=== PATIENT | female | born 1960 | race Caucasian/White ===

== ENCOUNTER 2016-10-05 12:47 | Outpatient (CLI) | payer MEDICAID | END 2016-10-05 12:48 | disposition home or self-care (01) | DX: Z00.00 Encounter for general adult medical examination without abnormal findings (principal); I10 Essential (primary) hypertension ==

== ENCOUNTER 2016-10-22 11:35 | Day surgery (SDC) | payer MEDICAID ==
[2016-10-22] MEDS ORDERED: LACTATED RINGERS 1,000 ML IV ONE (11:41)
[2016-10-22] MEDS ORDERED: MIDAZOLAM 2 MG/2 ML VIAL IVP ONE (13:00)
[2016-10-22] MEDS ORDERED: fentaNYL 100 MCG/2 ML VIAL IVP ONE (13:00)
[2016-10-22] MEDS ORDERED: BENZOCAINE/TETRACAINE/BUTAMBEN SPRAY 56 GM TOP ONE (13:04)
== END 2016-10-22 11:36 | disposition home or self-care (01) ==
PROC: 0DB68ZX Excision of Stomach, Via Natural or Artificial Opening Endoscopic, Diagnostic (ICD-10-PCS; principal; 2016-10-22 12:45)
DX: K21.9 Gastro-esophageal reflux disease without esophagitis (principal); K22.10 Ulcer of esophagus without bleeding; K29.50 Unspecified chronic gastritis without bleeding; K31.7 Polyp of stomach and duodenum; D64.9 Anemia, unspecified; I10 Essential (primary) hypertension; I49.9 Cardiac arrhythmia, unspecified; G43.909 Migraine, unspecified, not intractable, without status migrainosus; E78.00 Pure hypercholesterolemia, unspecified; R01.1 Cardiac murmur, unspecified; R05 Cough; Z79.891 Long term (current) use of opiate analgesic; Z79.899 Other long term (current) drug therapy; Z87.891 Personal history of nicotine dependence; R06.83 Snoring; Z87.11 Personal history of peptic ulcer disease
CPT/HCPCS: 43239; A9270; J7120

== ENCOUNTER 2017-11-17 11:55 | Outpatient (CLI) | payer MEDICAID ==
--- NOTE | 2017-11-18 14:23 | Mammography Report ---
DIGITAL SCREENING MAMMOGRAM: 11/17/2017 CLINICAL INDICATION: A 57-year-old nulliparous patient with history of benign left breast biopsies for screening. COMPARISON: 09/2015, 12/2012, 03/2011. TECHNIQUE: Routine CC and MLO projections were obtained of the breasts. FINDINGS: The breasts again demonstrate heterogeneously dense fibroglandular parenchyma bilaterally. Coarse and punctate, typically benign calcifications are present. Postbiopsy changes in the left breast are stable. No suspicious masses, clustered microcalcifications, or regions of architectural distortion are identified. IMPRESSION: BENIGN FINDINGS. RECOMMENDATION: Routine annual screening unless otherwise clinically indicated. BIRADS CATEGORY 2 - benign findings. STANDARD QUALIFYING STATEMENTS: 1. This examination was reviewed with the aid of Computer-Aided Detection (CAD). 2. A negative or benign imaging report should not delay biopsy if clinically suspicious findings are present. Consider surgical consultation if warranted. More than 5% of cancers are not identified by imaging. 3. Dense breasts may obscure an underlying neoplasm. TD: 11/18/2017 14:23
== END 2017-11-17 11:56 | disposition home or self-care (01) ==
LOC: DI.N 11:55
PROVIDERS: ATTEND Family Medicine
DX: Z12.31 Encounter for screening mammogram for malignant neoplasm of breast (principal)
CPT/HCPCS: 77067

== ENCOUNTER 2017-12-09 09:51 | Day surgery (SDC) | payer MEDICAID ==
[2017-12-09] MEDS ORDERED: LACTATED RINGERS 1,000 ML IV ONE ×2 (09:57→11:19)
[2017-12-09] MEDS ORDERED: fentaNYL 250 MCG/5 ML VIAL IVP ONE (11:27)
[2017-12-09] MEDS ORDERED: MIDAZOLAM 2 MG/2 ML VIAL IVP ONE (11:27)
[2017-12-09 12:20] VITALS: BP 112/85
== END 2017-12-09 09:52 | disposition home or self-care (01) ==
LOC: SDS 09:51
PROVIDERS: ATTEND Surgery
PROC: 0DBK8ZX Excision of Ascending Colon, Via Natural or Artificial Opening Endoscopic, Diagnostic (ICD-10-PCS; principal; 2017-12-09 11:00)
DX: Z12.11 Encounter for screening for malignant neoplasm of colon (principal); D12.2 Benign neoplasm of ascending colon; K64.8 Other hemorrhoids; K57.30 Diverticulosis of large intestine without perforation or abscess without bleeding; I10 Essential (primary) hypertension; K21.9 Gastro-esophageal reflux disease without esophagitis; Z87.891 Personal history of nicotine dependence
CPT/HCPCS: 45380; J3010; J7120

== ENCOUNTER 2018-06-24 08:22 | Outpatient (CLI) | payer MEDICAID ==
--- NOTE | 2018-06-24 13:34 | DEXA Report ---
Reason: POSTMENOPAUSAL Procedure Date: 06/24/2018 Accession Number: [id number] / [id number] Procedure: DEX - Dexa Spine and/or Hip CPT Code: FULL RESULT: EXAM: Dexa Spine and/or Hip DATE: 06/24/2018 8:44 AM CLINICAL HISTORY: POSTMENOPAUSAL TECHNIQUE: Dual energy x-ray absorptiometry (DXA) was performed on a [employer] System. Regions measured are the AP Spine, femoral neck, and if needed forearm. COMPARISON: None. In accordance with the International Society for Clinical Densitometry (ISCD) guidelines, data from previous exams may be reanalyzed using current recommendations and techniques. This is done to allow a more accurate basis for comparison with the current study. FINDINGS: The data for the lumbar spine is as follows: BMD (g/cm/cm) T-SCORE Z-SCORE REGION L1 0.854 -2.3 -1.4 L2 1.014 -1.6 -0.6 L3 1.084 -1.0 0.0 L4 0.968 -1.9 -1.0 TOTAL 0.984 -1.6 -0.7 NOTE: All evaluable vertebrae are used for classification The data for the hip is as follows: BMD (g/cm/cm) T-SCORE Z-SCORE REGION Neck 0.796 -1.7 -0.7 TOTAL 0.872 -1.1 -0.3 NOTE: The femoral neck or total proximal femur, whichever is lowest, is used for classification. IMPRESSION: THE WHO CLASSIFICATION BASED ON THE INTERNATIONAL REFERENCE STANDARD IS OSTEOPENIA. THE FRACTURE RISK IS INCREASED. RECOMMENDATION: Patients with diagnosis of osteoporosis or osteopenia should have regular bone mineral density assessment. For those eligible for Medicare, routine testing is allowed once every 2 years. Testing frequency can be increased for patients who have rapidly progressing disease or for those who are receiving medical therapy to restore bone mass. COMMENT: World Health Organization (WHO) definitions for osteoporosis and osteopenia: NORMAL BMD: T-score at -1.0 or higher, fracture risk is low OSTEOPENIA BMD: T-score between -1.0 and -2.5, fracture risk is increased. OSTEOPOROSIS BMD: T-score at -2.5 or lower, fracture risk is high. National Osteoporosis Foundation recommends: 1. Obtain adequate dietary calcium (at least 1200 mg per day) and vitamin D (400-800 international units per day). 2. Participate, as appropriate, in regular weightbearing and muscle-strengthening exercise. 3. Avoid tobacco use and reduce alcohol and caffeine intake. 4. For more detailed information see the website at www.NOF.org.
== END 2018-06-24 08:23 | disposition home or self-care (01) ==
LOC: DI 08:22
PROVIDERS: ATTEND Family Medicine
DX: M85.89 Other specified disorders of bone density and structure, multiple sites (principal)
CPT/HCPCS: 77080

== ENCOUNTER 2018-11-30 09:07 | Outpatient (CLI) | payer MEDICAID ==
[~2018-11-30 09:07] MED LIST: ALBUTEROL NEB 2.5 MG/3 ML INH SCH
== END 2018-11-30 09:08 | disposition home or self-care (01) ==
LOC: RT 09:07
PROVIDERS: ATTEND Family Medicine
DX: R06.2 Wheezing (principal)
CPT/HCPCS: 94010; 94729

== ENCOUNTER 2018-12-02 10:11 | Outpatient (CLI) | payer MEDICAID ==
--- NOTE | 2018-12-02 10:53 | Mammography Report ---
Reason: SCREENING MAMMO Procedure Date: 12/02/2018 Accession Number: [id number] / [id number] Procedure: MGN - Screening Mammo Dig Bilat CPT Code: FULL RESULT: EXAM: Screening Mammo Dig Bilat DATE: 12/02/2018 10:30 AM CLINICAL HISTORY: Routine screening. No reported personal or family history of breast cancer. Prior history of benign left breast surgery. TECHNIQUE: Bilateral CC and MLO views were obtained. COMPARISON: 11/17/2017 through 12/14/2012 FINDINGS: The breasts demonstrate heterogeneously dense fibroglandular parenchyma bilaterally. Left breast: There is a 5 mm grouping of calcifications in the posterior upper outer breast at 2:00, 7 cm from the nipple. Right breast: There are no suspicious masses, calcifications or areas of distortion. IMPRESSION: Left breast: 5 mm grouping of calcifications posterior upper outer breast. Incomplete. BI-RADS Category 0. Additional mammographic imaging is recommended. Right breast: Negative. BI-RADS Category 1. Recommend annual screening mammography. BI-RADS CATEGORY 0: Incomplete examination STANDARD QUALIFYING STATEMENTS: 1. This examination was reviewed with the aid of Computer-Aided Detection (CAD). 2. A negative or benign imaging report should not preclude biopsy if clinically suspicious findings are present. 3. Dense breasts may obscure an underlying neoplasm. 4. This examination was reviewed without the aid of 3D breast imaging (tomosynthesis).
== END 2018-12-02 10:12 | disposition home or self-care (01) ==
LOC: DI.N 10:11
DX: Z12.31 Encounter for screening mammogram for malignant neoplasm of breast (principal)
CPT/HCPCS: 77067

== ENCOUNTER 2018-12-23 13:46 | Outpatient (CLI) | payer MEDICAID ==
--- NOTE | 2018-12-23 15:19 | Mammography Report ---
Reason: ABNORMAL MAMMOGRAM Procedure Date: 12/23/2018 Accession Number: [id number] / [id number] Procedure: ARIADNA - Diag Special Views Dig LT CPT Code: FULL RESULT: EXAM: Diag Special Views Dig LT DATE: 12/23/2018 3:03 PM CLINICAL HISTORY: Diagnostic examination. The patient is recalled from screening for a 5 mm grouping of calcifications in the posterior upper outer breast at 2:00, 7 cm from the nipple. TECHNIQUE: (L) - Left spot magnified CC, spot magnified ML and ML images are obtained. COMPARISON: 12/02/2018 through 12/14/2012. PARENCHYMAL PATTERN: (D) - The breast(s) demonstrate(s) heterogeneously dense fibroglandular parenchyma. FINDINGS: The previously identified 5 mm grouping of calcifications in the posterior upper outer breast at 2:00 is not definitely characterized as benign and demonstrates pleomorphic appearance with no associated mass or architectural distortion identified, suspicious. Stereotactic biopsy is recommended. IMPRESSION: Suspicious findings. BI-RADS category 4. RECOMMENDATION: (BIOPSY) - stereotactic. BI-RADS CATEGORY: (4) - Suspicious. STANDARD QUALIFYING STATEMENTS: 1. This examination was not reviewed with the aid of Computer-Aided Detection (CAD). 2. A negative or benign imaging report should not preclude biopsy if clinically suspicious findings are present. 3. Dense breasts may obscure an underlying neoplasm. 4. This examination was reviewed with the aid of 3D breast imaging (tomosynthesis). The nurse for Dr. Luke was notified of the results of the study.
== END 2018-12-23 13:47 | disposition home or self-care (01) ==
LOC: DI 13:46
PROVIDERS: ATTEND Family Medicine
DX: R92.1 Mammographic calcification found on diagnostic imaging of breast (principal)

== ENCOUNTER 2019-01-06 09:49 | Outpatient (CLI) | payer MEDICAID ==
[~2019-01-06 09:49] MED LIST changes: -ALBUTEROL NEB 2.5 MG/3 ML INH SCH; +BUFFERED LIDOCAINE 10 ML SYRINGE ONE; +BUPIVACAINE 0.5%-EPI 1:200000 PF 10 ML VIAL ONE
--- NOTE | 2019-01-06 14:26 | Mammography Report ---
Reason: ABNORMAL MAMMO Procedure Date: 01/06/2019 Accession Number: [id number] / [id number] Procedure: ARIADNA - Stereotactic Core BX LT CPT Code: 41530 FULL RESULT: EXAM: Stereotactic Core BX LT DATE: 01/06/2019 12:28 PM CLINICAL HISTORY: ABNORMAL MAMMO COMPARISON: 12/23/2018 through 12/14/2012. CLINICAL DATA: Target grouping of pleomorphic calcifications measuring 0.8 x 0.4 cm in the 2 o'clock axis of the left breast. Informed consent was obtained. The patient was positioned in the mammography machine with biopsy attachment. Targeting imaging was obtained and the lesion was selected. The breast was approached from the medial aspect. Using standard aseptic technique, 1% buffered lidocaine was injected into the breasts for local anesthesia. A small leola was made in the skin with a #11 blade. A 9-gauge vacuum-assisted device was advanced into the breasts towards the target and confirmatory imaging was obtained to verify targeting and 16 specimens were obtained. Specimen radiography was performed which demonstrated the presence of calcifications in the sample. At this point, the patient suffered a tonic clonic seizure changing position within the biopsy apparatus and dislodging the biopsy guide sheath. The sheath was manually repositioned into the best possible position urgently and the biopsy clip was delivered. Attention was immediately turned to the patient. The biopsy device was removed from the breast. Hemostasis was achieved. The patient recovered from the witnessed tonic-clonic seizure in under 1 minute. Vital signs were stable throughout. The patient did not recall the episode and could not recall a history of prior seizures. Based on this, the patient was referred to the emergency room. Prior to transfer, follow-up 3-D mammography was then performed to verify biopsy targeting and clip placement. The mammography showed that the previously targeted grouping of calcifications was no longer present. The biopsy clip was seen along the tract of the biopsy guide sheath more medially within the breast and not in the region of previously visualized calcifications which had been targeted. Careful review of mammographic images confirmed that the target grouping of calcifications was no longer present within the postbiopsy breast and the specimen radiograph demonstrated coarse and fine calcifications compatible with the targeted calcification group. Postbiopsy cavity soft tissue changes were difficult to discern. The patient appeared to tolerate the procedure well. The tissue was sent for histologic analysis. IMPRESSION: Adequate stereotactic biopsy of left upper outer breast grouping of calcifications complicated by tonic-clonic seizure resulting in suboptimal position of the biopsy clip. RADIA
== END 2019-01-06 09:50 | disposition home or self-care (01) ==
LOC: DI 09:49
PROVIDERS: ATTEND Family Medicine
DX: N60.12 Diffuse cystic mastopathy of left breast (principal)
CPT/HCPCS: 19081

== ENCOUNTER 2019-01-06 12:02 | Emergency (ER) | payer MEDICAID ==
--- NOTE | 2019-01-06 12:42 | ED Physician Documentation ---
PD HPI SYNCOPE - Stated complaint Stated Complaint: POSS SEIZURE - Chief complaint Chief Complaint: Neuro - History obtained from History obtained from: Patient - History of Present Illness Witnessed: Witnessed (She was having a breast biopsy done, she was sitting upright in the mammogram machine and started to feel like she was going to pass out and then did and reportedly was unconscious for about a minute with some shaking. She returned quickly to normal mental status without a significant postictal period. 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, Other - Present Medications Home Medications: Ambulatory Orders Medication Instructions Recorded Confirmed Atenolol [Tenormin] 50 mg PO DAILY 09/04/13 12/09/17 Calcium Carbonate [Calcium] 500 mg PO DAILY 09/04/13 12/09/17 Lisinopril/Hydrochlorothiazide 2 each PO DAILY 09/04/13 12/09/17 [Lisinopril-Hctz 10-12.5 mg Tab] Omeprazole [PriLOSEC] 20 mg PO DAILY 09/04/13 12/09/17 - Allergies Allergies/Adverse Reactions: Allergies Allergy/AdvReac Type Severity Reaction Status Date / Time Sulfa (Sulfonamide Allergy Unknown Unknown Unverified 09/04/13 10:03 Antibiotics) PD ED PE NORMAL - Vitals Vital signs reviewed: Yes - General General: Alert and oriented X 3, No acute distress - HEENT HEENT: PERRL, EOMI - Neck Neck: Supple, no meningeal sign, No bony TTP - Cardiac Cardiac: RRR, No murmur - Respiratory Respiratory: No respiratory distress, Clear bilaterally - Abdomen Abdomen: Soft, Non tender - Neuro Neuro: Alert and oriented X 3, Normal speech Eye Opening: Spontaneous Motor: Obeys Commands Verbal: Oriented GCS Score: 15 - Psych Psych: Normal mood, Normal affect Results - Vitals Vitals: Vital Signs - 24 hr 01/06/19 01/06/19 12:06 12:12 Temperature 36.8 C Heart Rate 56 L Respiratory 18 18 Rate Blood Pressure 114/72 O2 Saturation 100 Oxygen O2 Source Room air PD MEDICAL DECISION MAKING - ED course ED course: This episode was 100% consistent with vasovagal syncope with myoclonic jerking, not seizure activity. Departure - Departure Disposition: 01 Home, Self Care Clinical Impression: Myoclonic jerking Syncope Qualifiers: Syncope type: vasovagal syncope Qualified Code(s): R55 - Syncope and collapse Condition: Good Record reviewed to determine appropriate education?: Yes Instructions: ED Syncope Vasovagal Comments: As discussed the episode is not consistent with seizure. Make sure you are laying flat for further medical procedures.
[2019-01-06 12:47] VITALS: BP 104/72
== END 2019-01-06 12:46 | disposition home or self-care (01) ==
LOC: ED 12:02
DX: R55 Syncope and collapse (principal); G25.3 Myoclonus; I10 Essential (primary) hypertension; R92.8 Other abnormal and inconclusive findings on diagnostic imaging of breast; N60.12 Diffuse cystic mastopathy of left breast
CPT/HCPCS: 19081; 99283

== ENCOUNTER 2019-03-06 11:54 | Outpatient (CLI) | payer MEDICAID ==
--- NOTE | 2019-03-06 16:14 | Ultrasound Report ---
Reason: ACUTE RENAL FAILURE Procedure Date: 03/06/2019 Accession Number: [id number] / [id number] Procedure: US - Retroperitoneal CPT Code: FULL RESULT: EXAM: RENAL ULTRASOUND EXAM DATE: 03/06/2019 12:48 PM. CLINICAL HISTORY: ACUTE RENAL FAILURE. COMPARISON: None. TECHNIQUE: Real-time scanning was performed with static images obtained. FINDINGS: Right Kidney: 9.2 cm in maximal sagittal dimension. Normal echotexture with no stones, contour-deforming masses, or hydronephrosis. Left Kidney: 9.5 cm in maximal sagittal dimension. Normal echotexture with no stones, contour-deforming masses, or hydronephrosis. Bladder: Bilateral jets seen. The prevoid bladder volume was 91 cc. The postvoid bladder volume was 16 cc. Other: None. IMPRESSION: Normal renal ultrasound. RADIA
== END 2019-03-06 11:55 | disposition home or self-care (01) ==
LOC: DI 11:54
PROVIDERS: ATTEND Family Medicine
DX: N17.9 Acute kidney failure, unspecified (principal)
CPT/HCPCS: 76770

== ENCOUNTER 2019-03-13 10:47 | Outpatient (CLI) | payer MEDICAID ==
--- NOTE | 2019-03-13 13:54 | XRAY Report ---
Reason: COUGH WITH FEVER Procedure Date: 03/13/2019 Accession Number: [id number] / [id number] Procedure: WCP - Chest 2 View X-Ray CPT Code: 44835 FULL RESULT: EXAM: CHEST RADIOGRAPHY EXAM DATE: 03/13/2019 11:02 AM. CLINICAL HISTORY: COUGH WITH FEVER. COMPARISON: None. TECHNIQUE: 2 views. FINDINGS: Lungs/Pleura: Left lower lobe infiltrate. No pleural effusion. No pneumothorax. Normal volumes. Mediastinum: Heart and mediastinal contours are unremarkable. Other: None. IMPRESSION: Left lower lobe infiltrate. RADIA
== END 2019-03-13 10:48 | disposition home or self-care (01) ==
LOC: DI.WCP 10:47
PROVIDERS: ATTEND Family Medicine
DX: R91.8 Other nonspecific abnormal finding of lung field (principal)
CPT/HCPCS: 71046

== ENCOUNTER 2019-08-07 08:54 | Outpatient (CLI) | payer MEDICAID ==
--- NOTE | 2019-08-07 10:20 | Mammography Report ---
Reason: ABN MAMMO - 6 MO F/U Procedure Date: 08/07/2019 Accession Number: [id number] / [id number] Procedure: ARIADNA - Diagnostic Dig LT CPT Code: Final Report FULL RESULT: EXAM: Diagnostic Dig LT DATE: 08/07/2019 9:49 AM CLINICAL HISTORY: Diagnostic mammogram, six month follow-up post left breast stereotactic core biopsy (01/06/2019); benign pathology. TECHNIQUE: (B) - Bilateral CC and MLO views were obtained. COMPARISON: 12/23/2018 (left breast diagnostic) PARENCHYMAL PATTERN: The breast tissue is heterogeneously dense which limits mammographic sensitivity. FINDINGS: The pattern of nodular asymmetry is stable given positional variation. A microclip is in place in the posterior upper outer 2:00 position, site of benign biopsy. There are no developing suspicious masses, calcifications, or areas of distortion. IMPRESSION: Benign examination. BI-RADS Category 2 RECOMMENDATION: Resume routine screening mammography. The next bilateral mammogram is recommended November 2019. BI-RADS Category 2 - Benign STANDARD QUALIFYING STATEMENTS: 1. A negative or benign imaging report should not preclude biopsy if clinically suspicious findings are present. 3. Dense breasts may obscure an underlying neoplasm. 4. This examination was reviewed with the aid of 3D breast imaging (tomosynthesis).
== END 2019-08-07 08:55 | disposition home or self-care (01) ==
LOC: DI 08:54
PROVIDERS: ATTEND Family Medicine
DX: Z09 Encounter for follow-up examination after completed treatment for conditions other than malignant neoplasm (principal); Z86.018 Personal history of other benign neoplasm

== ENCOUNTER 2020-03-19 13:43 | Outpatient (CLI) | payer MEDICAID ==
[2020-03-19 18:14] LABS: BASOPHILS # (AUTO) 0.1 10^3/uL (0.0-0.1); BASOPHILS % (AUTO) 0.8 %; EOSINOPHILS % (AUTO) 0.7 %; HGB - HEMOGLOBIN 15.5 g/dL (12.0-16.0); LYMPHOCYTES # (AUTO) 3.1 10^3/uL (1.5-3.5); MEAN CORPUSCULAR HEMOGLOBIN 34.5 pg (27.0-31.0); MEAN CORPUSCULAR HGB CONC 33.8 g/dL (32.0-36.0); MEAN CORPUSCULAR VOLUME 102.2 fL (81.0-99.0); MEAN PLATELET VOLUME 11.3 fL (7.9-10.8); MONOCYTES # (AUTO) 0.6 10^3/uL (0.0-1.0); MONOCYTES % (AUTO) 9.3 %; NEUTROPHILS # (AUTO) 2.2 10^3/uL (1.5-6.6); PLT - PLATELET COUNT 109 10^3/uL (130-450); RED BLOOD COUNT 4.49 10^6/uL (4.20-5.40); RED CELL DISTRIBUTION WIDTH 13.8 % (12.0-15.0); WHITE BLOOD COUNT 5.9 x10^3/uL (4.8-10.8)
[2020-03-19 18:53] LABS: FERRITIN 344.2 ng/mL (11.0-306.8)
[2020-03-19 18:57] LABS: ALBUMIN 4.2 g/dL (3.2-5.5); BILIRUBIN,TOTAL 0.8 mg/dL (0.2-1.0); CALCIUM 9.1 mg/dL (8.5-10.3); TOTAL PROTEIN 8.3 g/dL (6.7-8.2)
== END 2020-03-19 23:59 | disposition home or self-care (01) ==
LOC: LAB.WCP 13:43
PROVIDERS: ATTEND Family Medicine
DX: N28.9 Disorder of kidney and ureter, unspecified (principal); F10.10 Alcohol abuse, uncomplicated; R79.0 Abnormal level of blood mineral
CPT/HCPCS: 36415; 80053; 82607; 82728; 83540; 84466; 85025

== ENCOUNTER 2020-05-17 11:50 | Outpatient (CLI) | payer MEDICAID, OTHER ==
[2020-05-17 18:20] LABS: BASOPHILS # (AUTO) 0.1 10^3/uL (0.0-0.1); BASOPHILS % (AUTO) 0.8 %; EOSINOPHILS % (AUTO) 0.6 %; HGB - HEMOGLOBIN 14.9 g/dL (12.0-16.0); LYMPHOCYTES # (AUTO) 2.2 10^3/uL (1.5-3.5); LYMPHOCYTES % (AUTO) 33.6 %; MEAN CORPUSCULAR HEMOGLOBIN 35.6 pg (27.0-31.0); MEAN CORPUSCULAR HGB CONC 34.2 g/dL (32.0-36.0); MEAN CORPUSCULAR VOLUME 104.3 fL (81.0-99.0); MEAN PLATELET VOLUME 11.4 fL (7.9-10.8); MONOCYTES # (AUTO) 0.6 10^3/uL (0.0-1.0); MONOCYTES % (AUTO) 8.5 %; NEUTROPHILS # (AUTO) 3.7 10^3/uL (1.5-6.6); NEUTROPHILS % (AUTO) 56.2 %; PLT - PLATELET COUNT 135 10^3/uL (130-450); RED BLOOD COUNT 4.18 10^6/uL (4.20-5.40); RED CELL DISTRIBUTION WIDTH 13.9 % (12.0-15.0); WHITE BLOOD COUNT 6.6 x10^3/uL (4.8-10.8)
[2020-05-17 18:57] LABS: ALBUMIN 4.2 g/dL (3.2-5.5); BILIRUBIN,TOTAL 1.1 mg/dL (0.2-1.0); CALCIUM 9.8 mg/dL (8.5-10.3); CREATININE 0.8 mg/dL (0.4-1.0); TOTAL PROTEIN 8.3 g/dL (6.7-8.2)
[2020-05-18 12:06] LABS: HEPATITIS C ANTIBODY NON-REACTIVE (NON-REACTIVE)
[2020-05-18 12:21] LABS: HEPATITIS B SURFACE ANTIGEN NON-REACTIVE (NON-REACTIVE)
== END 2020-05-17 11:51 | disposition home or self-care (01) ==
LOC: LAB.WCP 11:50
PROVIDERS: ATTEND Family Medicine
DX: D64.9 Anemia, unspecified (principal); R94.5 Abnormal results of liver function studies
CPT/HCPCS: 36415; 80053; 82728; 85025; 86317; 86704; 86803; 87340

== ENCOUNTER 2020-10-16 | Outpatient (CLI) | payer OTHER | END 2020-10-16 10:08 | disposition critical access hospital (66) | DX: R47.81 Slurred speech (principal) | CPT/HCPCS: A0425; A0427 ==

== ENCOUNTER 2020-10-16 10:21 | Observation (INO) | payer OTHER ==
[2020-10-16] MEDS ORDERED: SODIUM CHLORIDE 0.9% 1,000 ML IV STA (10:27)
--- NOTE | 2020-10-16 10:29 | ED Physician Documentation ---
PD HPI ALTERED MENTAL STATUS - Stated complaint Stated Complaint: CODE STROKE - History obtained from History obtained from: Patient, Family (report from ), EMS - History of Present Illness Timing - onset: Today (about 9 am) Timing - details: Abrupt onset (The medics conveyed from the and patient and I also talked with the : The patient had abrupt unintelligible speech associated with ataxia and off balance that came on abruptly. No focal weakness. Lasted about 5-10 minutes and was improving on EMS arrival. They noted some garbled.) Quality / character: Other (garbled speech and ataxia abruptly.) Associated symptoms: No: Fever, Headache Contributing factors: Other (initially did not offer that she had alcohol use.). No: Diabetic Basline status: Alert and oriented X 3 Similar symptoms before: Has not had sx before Recently seen: Not recently seen Review of Systems Constitutional: denies: Fever, Chills Eyes: denies: Loss of vision Nose: denies: Rhinorrhea / runny nose, Congestion Throat: denies: Sore throat Cardiac: denies: Chest pain / pressure, Palpitations Respiratory: denies: Dyspnea, Cough GI: denies: Abdominal Pain, Vomiting : denies: Dysuria Skin: denies: Rash Musculoskeletal: denies: Neck pain, Back pain Neurologic: reports: Difficulty speaking, Altered mental status. 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: Tubal ligation, Other - Present Medications Home Medications: Ambulatory Orders Medication Instructions Recorded Confirmed Calcium Carbonate [Calcium] 500 mg PO DAILY 09/04/13 12/09/17 Lisinopril/Hydrochlorothiazide 2 each PO DAILY 09/04/13 12/09/17 [Lisinopril-Hctz 10-12.5 mg Tab] Omeprazole [PriLOSEC] 20 mg PO DAILY 09/04/13 12/09/17 atenoloL [Tenormin] 50 mg PO DAILY 09/04/13 12/09/17 Amlodipine Besylate [Norvasc] 10/16/20 - Allergies Allergies/Adverse Reactions: Allergies Allergy/AdvReac Type Severity Reaction Status Date / Time Sulfa (Sulfonamide Allergy Unknown Unknown Verified 10/16/20 13:29 Antibiotics) PD ED PE NORMAL - Vitals Vital signs reviewed: Yes - General General: Alert and oriented X 3, No acute distress, Well developed/nourished - HEENT HEENT: PERRL, EOMI, Moist mucous membranes, Pharynx benign - Neck Neck: Supple, no meningeal sign, No adenopathy - Cardiac Cardiac: RRR, No murmur - Respiratory Respiratory: Clear bilaterally - Abdomen Abdomen: Soft, Non tender - Back Back: No CVA TTP - Derm Derm: Normal color, Warm and dry - Extremities Extremities: No tenderness to palpate, Normal ROM s pain, No edema, No calf tenderness / cord - Neuro Neuro: Alert and oriented X 3, No motor deficit, No sensory deficit, Normal s peech - Psych Psych: No: Normal affect (giddy and laughing exuberantly at times. ) NIHSS - Level of Consciousness Level of consciousness: (0) Alert, Keenly responsive LOC Questions: (0) Answers both Q's correct LOC Commands: (0) Performs both correctly - Gaze Best Gaze: (0) Normal - Visual Visual: (0) No loss - Facial Palsy Facial Palsy: (0) Normal, symmetrical movement - Motor Arms (both separate) Motor Arm (right): (0) No drift Motor Arm (left): (0) No drift - Motor Legs (both separate) Motor Leg (right): (0) No drift Motor Leg (left): (0) No drift - Limb Ataxia Limb Ataxia: (0) Absent - Sensory Sensory: (0) Normal - Best Language Best Language: (0) No aphasia - Dysarthria Dysarthria: (0) Normal - Extinction and Inattention (formally neg Extinction and inattention: (0) No abnormality - Total Score/Results Total Score/Result: 0 Results - Vitals Vitals: Vital Signs - 24 hr 10/16/20 10/16/20 10/16/20 10:25 10:54 11:03 Temperature 36.2 C L Heart Rate 87 91 89 Respiratory 16 16 18 Rate Blood Pressure 133/80 H 129/79 93/67 O2 Saturation 100 100 95 10/16/20 10/16/20 10/16/20 11:19 11:46 12:09 Temperature 36.4 C L Heart Rate 88 86 84 Respiratory 21 20 18 Rate Blood Pressure 139/102 H 128/91 H 130/77 O2 Saturation 100 93 96 Oxygen O2 Source Room air - EKG (time done) 10:43 Rate: Rate (enter#) (90) Rhythm: NSR Rosamond: Normal Intervals: Normal AL QRS: Normal Ischemia: No: Normal ST segments, ST elevation c/w repol - Labs Labs: Laboratory Tests 10/16/20 10/16/20 10/16/20 10:28 10:38 10:50 WBC 6.2 RBC 4.25 Hgb 14.5 Hct 41.7 MCV 98.1 MCH 34.1 H MCHC 34.8 RDW 12.9 Plt Count 122 L MPV 10.3 Neut # (Auto) 1.9 Lymph # (Auto) 3.4 Duval # (Auto) 0.6 Eos # (Auto) 0.2 Baso # (Auto) 0.0 Absolute Nucleated RBC 0.00 Nucleated RBC % 0.0 ESR 24 Sodium Potassium Chloride Carbon Dioxide Anion Gap BUN Creatinine Estimated GFR (MDRD) Glucose Calcium Magnesium Total Bilirubin AST ALT Alkaline Phosphatase Total Protein Albumin Globulin Albumin/Globulin Ratio Ethyl Alcohol 345.3 10/16/20 10:50 WBC RBC Hgb Hct MCV MCH MCHC RDW Plt Count MPV Neut # (Auto) Lymph # (Auto) Duval # (Auto) Eos # (Auto) Baso # (Auto) Absolute Nucleated RBC Nucleated RBC % ESR Sodium 142 Potassium 3.4 L Chloride 102 Carbon Dioxide 21 Anion Gap 19.0 H BUN 11 Creatinine 1.1 H Estimated GFR (MDRD) 50 L Glucose 139 H Calcium 9.3 Magnesium 1.7 Total Bilirubin 0.4 AST 78 H ALT 53 Alkaline Phosphatase 130 H Total Protein 7.9 Albumin 4.3 Globulin 3.6 Albumin/Globulin Ratio 1.2 Ethyl Alcohol - Rads (name of study) CT head Radiology: Prelim report reviewed (no ICH nor acute findings), Discussed with rads, See rad report head and neck angio Radiology: Prelim report reviewed, Discussed with rads (no vascular occlusions nor significant stenoses. ), See rad report PD MEDICAL DECISION MAKING - ED course Complexity details: reviewed results, re-evaluated patient (still emotive and somewhat giddy/ exagerated emotional response. This seems likely metabolic/ intoxicated. Cannot exclude TIA symptoms initially. ), considered differential (consider TIA/CVA, complex migraine, ICH, other concern. No focal deficits here on arrival. She is giddy/emotional though. ), d/w patient, d/w senior [employer] consultant (Talked with [facility] who felt no interventions needed (TPA/intravascular). To eval for TIA. ) Departure - Departure Disposition: ED Place in Observation Clinical Impression: TIA (transient ischemic attack) Alcohol intoxication Qualifiers: Complication of substance-induced condition: uncomplicated Qualified Code(s): F10.920 - Alcohol use, unspecified with intoxication, uncomplicated Condition: Stable Record reviewed to determine appropriate education?: Yes Discharge Date/Time: 10/16/20 13:47
--- NOTE | 2020-10-16 10:51 | CT Report ---
PROCEDURE: Head W/O Stroke Protocol INDICATIONS: confused and ataxia onset 9 am TECHNIQUE: Noncontrast 4.5 mm thick angled axial sections acquired from the foramen magnum to the vertex. For r adiation dose reduction, the following was used: automated exposure control, adjustment of mA and/or kV according to patient size. COMPARISON: None FINDINGS: Image quality: Excellent. CSF spaces: Basal cisterns are patent. No extra-axial fluid collections. The ventricles are symmet annalise in size and shape. Brain: No intracranial bleeds or masses. There is cerebral volume loss for age, with resultant vent ricular and sulcal prominence. There are periventricular and deep white matter chronic small vessel ischemic changes. There is intracranial internal carotid artery atherosclerosis. Skull and face: Calvarium and visualized facial bones appear intact, without suspicious lesions. Sinuses: Visualized sinuses and mastoids are clear. IMPRESSION: No acute intracranial disease process. Findings telephoned to Dr. Frankel on 10/16/2020 at 1050 hrs. This study fulfills neurological imaging criteria for inclusion or exclusion of acute stroke therapie s based on available published neurological imaging guidelines. Reviewed by: Enriqueta Singh MD, PhD on 10/16/2020 10:50 AM PST Approved by: Enriqueta Singh MD, PhD on 10/16/2020 10:50 AM PST Station ID: [id number]
[2020-10-16 10:58] LABS: BASOPHILS % (AUTO) 0.5 %; EOSINOPHILS # (AUTO) 0.2 10^3/uL (0.0-0.7); EOSINOPHILS % (AUTO) 2.7 %; HGB - HEMOGLOBIN 14.5 g/dL (12.0-16.0); LYMPHOCYTES # (AUTO) 3.4 10^3/uL (1.5-3.5); LYMPHOCYTES % (AUTO) 55.4 %; MEAN CORPUSCULAR HEMOGLOBIN 34.1 pg (27.0-31.0); MEAN CORPUSCULAR HGB CONC 34.8 g/dL (32.0-36.0); MEAN CORPUSCULAR VOLUME 98.1 fL (81.0-99.0); MEAN PLATELET VOLUME 10.3 fL (7.9-10.8); MONOCYTES # (AUTO) 0.6 10^3/uL (0.0-1.0); MONOCYTES % (AUTO) 9.8 %; NEUTROPHILS # (AUTO) 1.9 10^3/uL (1.5-6.6); NEUTROPHILS % (AUTO) 31.3 %; PLT - PLATELET COUNT 122 10^3/uL (130-450); RED BLOOD COUNT 4.25 10^6/uL (4.20-5.40); RED CELL DISTRIBUTION WIDTH 12.9 % (12.0-15.0); WHITE BLOOD COUNT 6.2 x10^3/uL (4.8-10.8)
--- NOTE | 2020-10-16 10:58 | CT Report ---
PROCEDURE: ANGIO NECK W INDICATIONS: confused and ataxia onset 9 am CONTRAST: IV CONTRAST: Optiray 320 ml: 80 PO CONTRAST: *NO PO CONTRAST TECHNIQUE: After the administration of intravenous contrast, 1.5 mm axial sections acquired from the aortic arch to the [place] of [place]. Coronal 3-D maximum intensity projection (MIP) and/or volume rendering ref ormats were then performed. For radiation dose reduction, the following was used: automated exposur e control, adjustment of mA and/or kV according to patient size. COMPARISON: CTA Head on the same date, CT head from the same date FINDINGS: Image quality: Excellent. 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 Great vessel origins are widely patent. There is marked t ortuosity of the proximal great vessels. The origins of the common carotid arteries appear patent. T he common carotid arteries demonstrate normal calibers and courses. The bifurcation regions appear n ormal bilaterally. The internal carotid arteries demonstrate normal caliber and course. Posterior circulation: The origins of the vertebral arteries appear patent. The more superior porti ons of the vertebral arteries demonstrate normal course and caliber. The left vertebral artery is dom inant. The right vertebral artery is mildly diminutive. They join to form a normal appearing basilar artery. Soft tissues: Visualized neck soft tissues demonstrate no suspicious abnormalities. The thyroid gla nd is normal in size. Bones: No suspicious bony lesions. Visualized cervical spine appears normally aligned. IMPRESSION: 1. 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 2. Great vessel origins are widely patent. There is significant tortuosity. Internal carotid arteries are widely patent. 3. Otherwise unremarkable CTA neck. Above discussed with Gibson Frankel MD at the time of dictation on 10/16/2020 at 1056 hours. The estimate of stenosis included in the report of the imaging study was calculated using the NASCET method Reviewed by: Onel Cameron MD on 10/16/2020 10:56 AM PST Approved by: Onel Cameron MD on 10/16/2020 10:56 AM PST Station ID: [id number]
--- NOTE | 2020-10-16 11:01 | CT Report ---
PROCEDURE: ANGIO HEAD W/WO INDICATIONS: confused and ataxia onset 9 am CONTRAST: IV CONTRAST: Optiray 320 ml: 80 PO CONTRAST: *NO PO CONTRAST TECHNIQUE: Precontrast 4.5 mm thick angled axial sections acquired from the foramen magnum to the vertex. Afte r the administration of intravenous contrast, 1 mm thick sections acquired through the [place] of [place] is. Postcontrast 4.5 mm thick sections then re-acquired from the foramen magnum to the vertex. 3-di mensional svwxobc-nlnnratgc-toifxzbfrc (MIP) and/or volume rendering reformats were acquired of the c entral intracranial vasculature. For radiation dose reduction, the following was used: automated ex posure control, adjustment of mA and/or kV according to patient size. COMPARISON: CT head from the same date, CT Angio Head and Neck with contrast from the same date FINDINGS: Image quality: Excellent. Anterior circulation: Intracranial internal carotid arteries are normal in size and flow. The flow within the paired anterior cerebral arteries is normal and symmetric. The flow within the middle cer ebral arteries is normal and symmetric. The anterior communicating artery is seen. No aneurysms are seen. Posterior circulation: Visualized portions of the vertebral arteries demonstrate normal caliber, and join to form a normal appearing basilar artery. Flow within the posterior cerebral arteries is norm al and symmetric. No aneurysms are seen. CSF spaces: Ventricles are normal in size and shape. Basal cisterns are patent. No extra-axial flu id collections. Brain: No midline shift. No intracranial bleeds or masses. Edwards-white matter interface appears int act. Skull and face: Calvarium and facial bones appear intact, without suspicious lesions. Sinuses: Visualized sinuses and mastoids are clear. IMPRESSION: 1. No evidence acute stroke, hemorrhage, or mass. 2. Unremarkable CTA head. No evidence of stenosis, occlusion, focal filling defect, or aneurysm. Above discussed with MARCIO NUR at the time of dictation on 10/16/2020 at 1056 hours. Reviewed by: Onel Cameron MD on 10/16/2020 11:00 AM PST Approved by: Onel Cameron MD on 10/16/2020 11:00 AM PST Station ID: [id number]
[2020-10-16] MEDS ORDERED: IOVERSOL 320 100 ML VIAL IVP ONE (11:14)
[2020-10-16 11:16] LABS: ALBUMIN 4.3 g/dL (3.2-5.5); ALBUMIN/GLOBULIN RATIO 1.2 (1.0-2.2); BILIRUBIN,TOTAL 0.4 mg/dL (0.2-1.0); CALCIUM 9.3 mg/dL (8.5-10.3); CREATININE 1.1 mg/dL (0.4-1.0); MAGNESIUM 1.7 mg/dL (1.7-2.8); TOTAL PROTEIN 7.9 g/dL (6.7-8.2)
[2020-10-16] MEDS ORDERED: ACETAMINOPHEN 325 MG TABLET PO PRN (12:12)
[2020-10-16] MEDS ORDERED: oxyCODONE 5 MG TABLET PO PRN (12:12)
[2020-10-16] MEDS ORDERED: SODIUM CHLORIDE FLUSH 0.9% 10 ML SYRINGE IVP PRN (12:12)
[2020-10-16] MEDS ORDERED: ONDANSETRON ODT 4 MG TABLET TL PRN (12:12)
[2020-10-16] MEDS ORDERED: ONDANSETRON 4 MG/2 ML VIAL IVP PRN (12:12)
[2020-10-16] MEDS ORDERED: SODIUM CHLORIDE 0.9% 1,000 ML IV SCH (13:00)
[2020-10-16 13:13] LABS: MUDS CUTOFF CONCENTRATIONS CUTOFF CONC BELOW:
[2020-10-16 13:15] LABS: BILIRUBIN,URINE NEGATIVE (NEGATIVE); GLUCOSE, URINE (UA) NEGATIVE (NEGATIVE); KETONES,URINE (UA) NEGATIVE (NEGATIVE); LEUKOCYTE ESTERASE, URINE NEGATIVE (NEGATIVE); NITRITE,URINE NEGATIVE (NEGATIVE); OCCULT BLOOD,URINE NEGATIVE (NEGATIVE); PROTEIN,URINE NEGATIVE (NEGATIVE); UROBILINOGEN,URINE 0.2 (NORMAL) E.U./dL (NORMAL)
[2020-10-16 13:20] LABS: CLARITY,URINE CLEAR (CLEAR)
[2020-10-16 13:24] LABS: AMPHETAMINE SCREEN,URINE NEGATIVE (NEGATIVE); BENZODIAZEPINES SCREEN, URINE NEGATIVE (NEGATIVE); COCAINE SCREEN URINE NEGATIVE (NEGATIVE); METHADONE SCREEN, URINE NEGATIVE (NEGATIVE); METHAMPHETAMINES SCREEN, URINE NEGATIVE (NEGATIVE); OPIATE SCREEN, URINE NEGATIVE (NEGATIVE); OXYCODONE SCREEN, URINE NEGATIVE (NEGATIVE); PROPOXYPHENE SCREEN, URINE NEGATIVE (NEGATIVE); TRICYCLIC ANTIDEPRESSANT,URINE NEGATIVE (NEGATIVE)
[2020-10-16] MEDS: THIAMINE INJ 100 MG, FOLIC ACID INJ 1 MG in SODIUM CHLORIDE 0.9% 1,000 ML IV SCH (14:27)
[2020-10-16 15:07] LABS: C. PNEUMONIAE- RESP PCR PANEL NOT DETECTED
--- NOTE | 2020-10-16 15:26 | HISTORY & PHYSICAL EXAMINATION ---
Chief Complaint - Chief Complaint Chief Complaint: altered mental status History of Present Illness - Admitted From Admitted From:: Pt and spouse - History Obtained From Records Reviewed: [facility] History obtained from: pt, spouse, chart - History of Present Illness HPI Comment/Other: 60 year old female with hx of alcohol abuse and seizures admitted from the ER today for altered mental status and concern for stroke. History obtained from Pt, her , and chart review. Pt's reports that this morning Pt was confused, slurring her words, and stumbling around the house. She was weaker than normal. He helped her into the car and she reports she stumbled against it, possibly hitting her foot, and was "seeing red and black spots". They presented to the clinic for a check up and were instructed to come to the ER for stroke work up. She does not remember leaving the house and presenting to the clinic. Since presenting to the ED her altered mental status has cleared. She is tremulous and excitable, slightly labile. She has a long history of alcohol abuse, with unclear history of withdrawals though this is likely given past hx of seizures and report of previous agitation and confusion after periods of not drinking. Her last drink was yesterday but she cannot remember how much she drank and her was sleeping and not aware she was drinking. On work up in the ED, ethyl alcohol was 345.3. Head CT, head CTA, and neck CTA were all unremarkable and negative for stroke. Her speech is clear, affect is labile (ranging from flat to happy), and her emotions have been labile since admission to the med-surg unit. Her gait is unsteady and she is tremulous. She is alert and oriented x4. She denies pain, n/v, fevers, chills or fatigue. Remaining ROS negative. She was admitted for work up of TIA vs stroke vs alcohol withdrawal. History - Past Medical History Cardiovascular: reports: Hypertension, High cholesterol, Angina (stress test for ischemia; able to exercise to 10.1 meq), Atrial flutter, Murmur, Arrhythmia, Other (palpitations) Respiratory: reports: None, Asthma (Reports hx asthma, uses inhaler infrequently with exercise), Pneumonia Neuro: reports: Migraines, Peripheral neuropathy, Seizure disorder GI: reports: GERD, Chronic diarrhea, Other : reports: None HEENT: reports: Chronic sinusitis, Other Psych: reports: Depression, Anxiety Musculoskeletal: reports: Osteoarthritis, Fatigue Derm: reports: None MRSA Hx?: No - Past Surgical History General: reports: 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 Lives at home with , they have been together almost 50 years. - Substance History Dependence: Experiences withdrawal or developed tolerances: Alcohol (Pint every 3 days, reports recently cutting back. Identified with elevated liver enzymes and ferritin level in 2019; referred to telepsychiatry service. Continue to drink 4 drinks of alcohol at night, vodka. Occasional tremors if she did not drink. No kaveh withdrawal, previously declined AA. ) Dependence Issues: Intoxication Tobacco Details: Other (smoked 1/4 PPD x12 years, quit 1980) - POLST Patient has POLST: No Meds/Allgy - Home Medications Home Medications: Ambulatory Orders Medication Instructions Recorded Confirmed Calcium Carbonate [Calcium] 500 mg PO DAILY 09/04/13 12/09/17 Lisinopril/Hydrochlorothiazide 2 each PO DAILY 09/04/13 12/09/17 [Lisinopril-Hctz 10-12.5 mg Tab] Omeprazole [PriLOSEC] 20 mg PO DAILY 09/04/13 12/09/17 atenoloL [Tenormin] 50 mg PO DAILY 09/04/13 12/09/17 Amlodipine Besylate [Norvasc] 10/16/20 - Allergies Allergies/Adverse Reactions: Allergies Allergy/AdvReac Type Severity Reaction Status Date / Time Sulfa (Sulfonamide Allergy Unknown Unknown Verified 10/16/20 13:29 Antibiotics) Review of Systems - Constitutional Constitutional: reports: Weakness. denies: Fever, Chills - Eyes Eyes: reports: Spots in vision (when experiencing AMS, this has resolved). denies: Pain - Ears, Nose & Throat Ears, Nose & Throat: denies: Ear pain, Hearing loss, Sore throat - Cardiovascular Cariovascular: denies: Irregular heart rate, Palpitations, Chest pain, Edema, Lightheadedness, Syncope - Respiratory Respiratory: denies: Cough, SOB at rest, SOB with exertion - Gastrointestinal Gastrointestinal: denies: Abdominal pain, Constipation, Diarrhea - Genitourinary Genitourinary: denies: Dysuria, Incontinence - Musculoskeletal Musculoskeletal: denies: Muscle pain - Integumentary Integumentary: reports: Other (bruising on left dorsal foot and left posterior hand) - Neurological Neurological: reports: Other (tremor). denies: General weakness, Headache, Dizziness, Numbness, Seizures, Slurred speech (presenting problems of slurred speech, AMS and general weakness have resolved) - Psychiatric Psychiatric: denies: Depression - Endocrine Endocrine: denies: Polyuria, Polydypsia, Polyphagia - Hematologic/Lymphatic Hematologic/Lymphatic: reports: Bruising (left hand and left foot) - All Other Systems All Other Systems: reports: Reviewed and negative Prior Level of Functionality: independent with ADLs at home Exam - Vital Signs Reviewed Vital Signs: Yes Vital Signs: Vital Signs x48h Temp Pulse Resp BP Pulse Ox 10/16/20 12:51 78 20 102/79 99 10/16/20 12:09 36.4 C L 84 18 130/77 96 10/16/20 11:46 86 20 128/91 H 93 10/16/20 11:19 88 21 139/102 H 100 10/16/20 11:03 89 18 93/67 95 10/16/20 10:54 91 16 129/79 100 10/16/20 10:25 36.2 C L 87 16 133/80 H 100 - Physical Exam General Appearance: positive: Mild distress, Anxious Eyes Bilateral: positive: Normal inspection, PERRL, EOMI, No scleral icterus ENT: positive: ENT inspection nml Neck: positive: Nml inspection Respiratory: positive: Chest non-tender, No respiratory distress, Breath sounds nml Cardiovascular: positive: Regular rate & rhythm, No murmur, No gallop Peripheral Pulses: positive: 2+ Abdomen: positive: Non-tender, No organomegaly, Nml bowel sounds, No distention Skin: positive: Pallor Extremities: positive: Non-tender, Full ROM, Nml appearance, Pedal edema Neurologic/Psychiatric: positive: Oriented x3, CN's nml (2-12). negative: Motor nml (tremors), Mood/affect nml (excitable and emotionally labile), Weakness, Facial droop, Slurred/abnml speech Sepsis Event Note (H) - Evaluation Current Stage of Sepsis: Ruled out Conclusion/Plan - Problem List (1) TIA (transient ischemic attack) Conclusion/Plan: Initial presentation concerning for TIA, given report of slurred speech, unsteady gait, altered mental status, and "seeing spots" when she got into the care, in addition to short term amnesia of the trip to the clinic prior to presenting to the ED. Head CT and Head and Neck CTAs were unremarkable, negative for stroke, hemorrhage and mass. Speech is now clear and altered mental status has cleared. 1. Head CT 2. Head and Neck CTA 3. TTE 4. Brain MRI 5. EKG and telemetry 6. Toxicology screen 7. UA and chemistry panel (2) Alcohol intoxication Conclusion/Plan: Ethyl alcohol level 345.3 on admission. Reports last drink was yesterday but cannot remember how much she drank. Reports a pint of vodka every 3-4 days and thinks she likely took 2 drinks yesterday. Denies alcohol withdrawals but on further questioning reports she has been confused, tremulous and agitated in the past when not having drank recently. She also has a hx of a seizure in December 2018 after a breast biopsy, in retrospect may have been withdrawal related. Will start CIWA protocol given tremors, unsteady gait, emotional lability and agitation with nursing. She is alert and oriented x3 and speech is clear. 1. CIWA protocol with PRN ativan 2. Daily Thiamine 3. Daily chem panel, replace electrolytes as needed 4. Social work referral for alcohol abuse Qualifiers: Complication of substance-induced condition: uncomplicated Qualified Co de(s): F10.920 - Alcohol use, unspecified with intoxication, uncomplicated (3) Alcohol abuse Conclusion/Plan: Long history of alcohol abuse, has been unwilling in the past to go to AA and previously not interested in quitting. Today she is requesting resources to help her with her addiction. reports that when he removes alcohol from the house she buys more. She drinks a pint of vodka every 3 days, usually 3-4 drinks a night. Diagnosed with elevated liever enzymes and ferritin level in 2019. No hx of DTs and withdrawals, though her states that in retrospect she has been confused, tremulous and agitated in the past when going long periods of time between drinks. She was also seen for a seizure in 2019 after a breast bx that may have been related to withdrawal though was diagnosed as a vagal response at the time due to a needle phobia. 1. [facility] protocol to monitor for withdrawals 2. Social work consult for alcohol abuse referral (4) Acute kidney injury Conclusion/Plan: Acute kidney injury due to dehydration. Creatinine 1.1 on admission, 0.8 when last checked in May 2020. Started on IV fluids. 1. IVF for rehydration 2. Monitor CMB and trend creatinine 3. Monitor urine output (5) Hypokalemia Conclusion/Plan: Low potassium on admission related to dehydration. 3.4 on admission, 3.8 when last checked in May 2020. Will continue to monitor and replace as necessary. 1. Check CMP in the morning, replace if necessary. 2. Telemetry - Lab Results Lab results reviewed: Yes Fish Bones: 10/16/20 10:50 10/16/20 10:50 - Diagnostic Imaging Results Diagnostic Imaging Results: positive: Final report reviewed - EKG Results EKG Interpreted Independently: Yes Core Measures - Anticipated LOS I expect patient to be DC'd or transferred within 96 hours.: Yes - DVT/VTE - Prophylaxis VTE/DVT Device ordered at admit?: Yes
[2020-10-16] MEDS ORDERED: LORazepam 1 MG TABLET PO PRN (15:45)
[2020-10-16] MEDS ORDERED: MAGNESIUM SULFATE 2 GRAM 2 GM/50 ML BAG IV ONE (16:00)
[2020-10-16] MEDS: SODIUM CHLORIDE FLUSH 0.9% 10 ML SYRINGE IVP SCH (16:32)
--- NOTE | 2020-10-16 18:55 | PHARMACY PROGRESS NOTE ---
- Best Possible Medication History Admit Date and Time: 10/16/20 1212 Processed by: Pharmacy Medication History completed: Yes Patient Interview: Completed Secondary Source(s): Physician records (PATIENT INTERVIEWED BY PHARMACY. PATIENT ABLE TO CONFIRM HOME MEDICATIONS ), Pharmacy records, Insurance records As the person ultimately responsible for medication therapy, providers are able to order a medication from an existing home medication list in [facility] via the "Reconcile Routine" prior to Confirmation of that medication by technical support intern. Such practice is discouraged except when the physician, in their clinical judgment, deems that a medical need exists for a medication without regard to previous use.
--- NOTE | 2020-10-16 22:31 | Ultrasound Report ---
PROCEDURE: Abdomen Complete INDICATIONS: alcohol abuse w lfts TECHNIQUE: Real-time scanning was performed of the abdominal and retroperitoneal organs, with image documentatio n. COMPARISON: None. FINDINGS: Liver: Liver is small and demonstrates coarse heterogeneous echotexture and nodular contour suggesti ng cirrhosis. There is a small calcific focus measuring 4 x 3 mm. Gallbladder: The gallbladder is mildly distended. There are gallstones. No gallbladder wall thickeni ng, pericholecystic fluid collection or sonographic [place] sign. Biliary ducts: Intrahepatic bile ducts are non-dilated. Extrahepatic bile duct caliber measures 5 m m. Normal is 6-7 mm or less in diameter, or 10 mm or less post-cholecystectomy. Pancreas: Pancreas is not well seen. Spleen: Spleen is normal in size and homogeneous in echotexture. Kidneys: Kidneys are normal in size and echotexture. Right kidney measures 10.2 cm long; left kidne y measures 9.4 cm long. No hydronephrosis or nephrolithiasis. No solid masses. Aorta: Visualized aorta is normal in caliber at less than 3 cm. Iliacs: Proximal common iliac arteries are normal in caliber at less than 2.5 cm. IVC: Intrahepatic inferior vena cava is patent. Miscellaneous: No free abdominal fluid. IMPRESSION: 1. Liver is small and demonstrates heterogeneous echotexture with nodular contour consistent with cir rhosis. 2. Cholelithiasis. There is mild gallbladder distention. No ultrasound findings to suggest acute chol ecystitis. 3. Pancreas not well seen. Reviewed by: Linden Gagnon MD on 10/16/2020 10:29 PM PST Approved by: Linden Gagnon MD on 10/16/2020 10:29 PM PST Station ID: [id number]
[2020-10-17] MEDS: SODIUM CHLORIDE FLUSH 0.9% 10 ML SYRINGE IVP SCH ×3 (00:56→17:13)
[2020-10-17] MEDS: THIAMINE INJ 100 MG, FOLIC ACID INJ 1 MG in SODIUM CHLORIDE 0.9% 1,000 ML IV SCH (09:31)
--- NOTE | 2020-10-17 09:43 | DISCHARGE SUMMARY ---
Discharge Summary Admit Date: 10/16/20 Discharge Date: 10/17/20 Discharging Provider: Mandi Ye Primary Care Provider: Parrish Luke Code Status: Attempt Resuscitation Condition at Discharge: Stable Discharge Disposition: 01 Home, Self Care - DIAGNOSES Discharge Diagnoses with Status of Each Condition: (1) TIA (transient ischemic attack) Conclusion/Plan: Resolved. Initial presentation concerning for TIA, given report of slurred speech, unsteady gait, altered mental status, and "seeing spots" when she got into the care, in addition to short term amnesia of the trip to the clinic prior to presenting to the ED. Head CT and Head and Neck CTAs were unremarkable, negative for stroke, hemorrhage and mass. Speech is now clear and altered mental status has cleared. Pending MRI brain. 1. Head CT done-unremarkable 2. Head and Neck CTA done-unremarkable 3. TTE-pending 4. Brain MRI-pending 5. EKG and telemetry- sinus rhythm 6. Toxicology screen- ethyl alcohol elevated, remaining tox screen negative 7. UA and chemistry panel (2) Alcohol intoxication Conclusion/Plan: Resolved. Ethyl alcohol level 345.3 on admission. Reports last drink was Wednesday but cannot remember how much she drank. Reports a pint of vodka every 3-4 days and thinks she likely took 2 drinks prior to admission. Denies alcohol withdrawals but on further questioning reports she has been confused, tremulous and agitated in the past when not having drank recently. She also has a hx of a seizure in December 2018 after a breast biopsy, in retrospect may have been withdrawal related. CIWA protocol started given tremors, unsteady gait, emotional lability and agitation with nursing. Scores have been 2-3 and she has not required PRN ativan. She is alert and oriented x3 and speech is clear. 1. CIWA protocol with PRN ativan 2. Daily Thiamine 3. Daily chem panel, replace electrolytes as needed 4. Social work referral for alcohol abuse Qualifiers: Complication of substance-induced condition: uncomplicated Qualified Code(s): F10.920 - Alcohol use, unspecified with intoxication, uncomplicated (3) Alcohol abuse Conclusion/Plan: Stable. Long history of alcohol abuse, has been unwilling in the past to go to and previously not interested in quitting. Now she is requesting resources to help her with her addiction. reports that when he removes alcohol from the house she buys more. She drinks a pint of vodka every 3 days, usually 3-4 drinks a night. Diagnosed with elevated liever enzymes and ferritin level in 2019. No hx of DTs and withdrawals, though her states that in retrospect she has been confused, tremulous and agitated in the past when going long periods of time between drinks. She was also seen for a seizure in 2019 after a breast bx that may have been related to withdrawal though was diagnosed as a vagal response at the time due to a needle phobia. Abdominal ultrasound done yesterday revealed cirrhosis. She was educated on what this means and enco uraged to quit drinking so that the cirrhosis does not worsen. We discussed the trajectory of cirrhosis and her increased risk for hepatic cancer as well as if cirrhosis worsens risk for bleeding, portal hypertension, etc. 1. [facility] protocol to monitor for withdrawals 2. Social work consult for alcohol abuse referral 3. Follow up with PCP for cirrhosis management (4) Acute kidney injury Conclusion/Plan: Improved. Acute kidney injury due to dehydration. Creatinine 1.1 on admission, 0.8 when last checked in May 2020. Received IVF overnight, now saline locked as she is eating and drinking appropriately. 1. Encourage oral intake 2. Monitor CMB and trend creatinine 3. Monitor urine output (5) Hypokalemia Conclusion/Plan: Stable. Low potassium on admission related to dehydration. 3.4 on admission, 3.8 when last checked in May 2020. Will continue to monitor and replace as necessary. 1. Check CMP in the morning, replace if necessary. 2. Telemetry-sinus rhythm (6) Cirrhosis, newly diagnosed. Conclusion/Plan: Stable. Newly diagnosed this admission via abdominal ultrasound. Will need close follow up with her PCP. Educated on cirrhosis and need to abstain from alcohol. Also educated on end stage liver disease and risk for cancer associated with cirrhosis, kyara in setting of continuing drinking if she is unable to abstain. 1. Follow up PCP. - HPI History of Present Illness: 60 year old female with hx of alcohol abuse and seizures admitted from the ER today for altered mental status and concern for stroke. History obtained from Pt, her , and chart review. Pt's reports that this morning Pt was confused, slurring her words, and stumbling around the house. She was weaker than normal. He helped her into the car and she reports she stumbled against it, possibly hitting her foot, and was "seeing red and black spots". Th mert presented to the clinic for a check up and were instructed to come to the ER for stroke work up. She does not remember leaving the house and presenting to the clinic. Since presenting to the ED her altered mental status has cleared. She is tremulous and excitable, slightly labile. She has a long history of alcohol abuse, with unclear history of withdrawals though this is likely given past hx of seizures and report of previous agitation and confusion after periods of not drinking. Her last drink was yesterday but she cannot remember how much she drank and her was sleeping and not aware she was drinking. On work up in the ED, ethyl alcohol was 345.3. Head CT, head CTA, and neck CTA were all unremarkable and negative for stroke. Her speech is clear, affect is labile (ranging from flat to happy), and her emotions have been labile since admission to the med-surg unit. Her gait is unsteady and she is tremulous. She is alert and oriented x4. She denies pain, n/v, fevers, chills or fatigue. Remaining ROS negative. She was admitted for work up of TIA vs stroke vs alcohol withdrawal. - CONSULTS | PROCEDURES Consultations: Social Work Procedures: 2: Abdominal Ultrasound- cirrhosis Head CTA- unremarkable Neck CTA- unremarkable Head CT- No acute intracranial disease process 10/17: Brain MRI TTE - HOSPITAL COURSE Hospital Course: Pt admitted with slurred speech, altered mental status, unsteady gait, and amnesia to about an hour of her day. Reported her last drink was 24 hours prior, found to have ethyl alcohol of 345 on admission. Her mental status and speech cleared in the ER, she was emotionally labile and hyperexcitable on admission to the floor. These also improved so that she was calmer by the evening. CIWA scores 2-3, she did not require PRN ativan. Head and neck CTA and head CT were all unremarkable. Abdominal ultrasound revealed cirrhosis. She is requesting resources and referrals to help her quit her alcohol abuse, an improvement from prior admissions/visits when she was not ready to discuss. She did not sleep overnight, reports this is because she was not at her own home and feeling ready to go home. Her tremor is greatly improved and barely noticeable. Gait is steady, speech is clear and she is oriented x3. Awaiting MRI brain and TTE this morning and then will discharge to home with her to follow up with her PCP regarding her cirrhosis and alcohol abuse. ROS has been negative, no fevers, SOB, chills, pain, n/v. - ALLERGIES Allergies/Adverse Reactions: Allergies Allergy/AdvReac Type Severity Reaction Status Date / Time Sulfa (Sulfonamide Allergy Unknown Unknown Verified 10/16/20 13:29 Antibiotics) lisinopril Allergy Unknown Verified 10/17/20 07:53 - MEDICATIONS Home Medications: Ambulatory Orders Medication Instructions Recorded Confirmed Omeprazole [PriLOSEC] 20 mg PO DAILY 09/04/13 10/16/20 atenoloL [Tenormin] 50 mg PO DAILY 09/04/13 10/16/20 Amlodipine Besylate [Norvasc] 10 mg PO DAILY 10/16/20 10/16/20 Cholecalciferol (Vitamin D3) 50 mcg PO DAILY 10/16/20 10/16/20 [Vitamin D3] Montelukast [Singulair] 10 mg PO QPM 10/16/20 10/16/20 - PHYSICAL EXAM AT DISCHARGE General Appearance: positive: No acute distress, Anxious Eyes Bilateral: positive: Normal inspection, PERRL, EOMI ENT: positive: ENT inspection nml Neck: positive: Nml inspection Respiratory: positive: Chest non-tender, No respiratory distress, Breath sounds nml Cardiovascular: positive: Regular rate & rhythm, No murmur, No gallop Peripheral Pulses: positive: 2+ Abdomen: positive: Non-tender, No organomegaly, Nml bowel sounds, No distention Skin: positive: Color nml Extremities: positive: Non-tender, Full ROM, Nml appearance, No pedal edema Neurologic/Psychiatric: positive: Oriented x3, Other (slight hand tremor, greatly improved and barely visible compared to yesterday) - LABS Result Diagrams: 10/16/20 10:50 10/16/20 10:50 - DIAGNOSTIC IMAGING Diagnostic Imaging Results: Final report reviewed Diagnostic Imaging Results Comments: 10/16: Abdominal Ultrasound- cirrhosis Head CTA- unremarkable Neck CTA- unremarkable Head CT- No acute intracranial disease process /4: Brain MRI TTE - SEPSIS Current Stage of Sepsis: Ruled out - FOLLOW UP Follow Up: Follow up with your PCP regarding your cirrhosis and desire to quit drinking alcohol. - TIME SPENT Time Spent in Discharge (Minutes): 35
--- NOTE | 2020-10-17 19:02 | Discharge Plan ---
Discharge Plan Problem Reviewed?: Yes Disposition: Home, Self Care Condition: Stable Diet: Regular Activity Restrictions: Activity as Tolerated Shower Restrictions: No Driving Restrictions: No Health Concerns: You presented to our emergency room with slurred speech, stumbling, changes in your vision with black and red spots. You also, unfortunately, were acutely in toxicated with alcohol at a level of 345. Toxic is considered above 200. We placed you in observation for rule out stroke. MRI of the brain, CT of the head, arteries of the neck, ultrasound of the heart were all normal. Plan of Treatment: 1. We have asked you to refrain from any alcohol use whatsoever 2. Please see your primary care provider in follow-up for continuity of care 3. Social work has given you some options and resources to help you in the outpatient setting with alcohol abuse Care Goals: To reduce your risk of stroke by making sure blood pressure, cholesterol, and health are in good shape Assessment: Patient and understand goals and will follow through No Smoking: If you smoke, Please STOP! Call for help. Follow-up with: Parrish Luke DO [Primary Care Provider] -
--- NOTE | 2020-10-17 19:04 | MRI Report ---
PROCEDURE: Brain W/O INDICATIONS: TIA TECHNIQUE: Noncontrast axial T1 spin echo, axial T2 fast spin echo, sagittal and axial FLAIR, coronal T2 fast sp in echo, axial gradient echo, axial diffusion and ADC through the brain. COMPARISON: Correlation is made with CT head and neck images 10/16/2020 FINDINGS: Image quality: Excellent. CSF Spaces: Basal cisterns are patent. No extra-axial fluid collections. Ventricles are normal in size and shape. Brain: No intracranial masses or hemorrhage. Edwards/white matter interface is normal. Brainstem appe ars normal. Mild brain parenchymal volume loss is seen. Mild chronic small vessel ischemic change is seen. Diffusion-weighted images demonstrate no acute ischemic insult. No chronic ischemic insults. Normal intravascular flow voids are present. Skull and face: Calvarium has normal marrow signal. Orbits appear normal. Sinuses: Sinuses and mastoids are clear. IMPRESSION: No findings of acute or subacute infarction are seen. Mild brain parenchymal volume loss and chronic small vessel ischemic change. Reviewed by: Ernesto Guan MD on 10/17/2020 6:03 PM [facility] Approved by: Ernesto Guan MD on 10/17/2020 6:03 PM [facility] Station ID: [id number]
[2020-10-17 19:54] VITALS: BP 134/93
== END 2020-10-17 19:54 | disposition home or self-care (01) ==
LOC: EDUNIT# → ED 10:21 → MS2 12:12 → OBS 20:28
PROVIDERS: ADMIT Specialist; ATTEND Specialist
DX: G45.9 Transient cerebral ischemic attack, unspecified (principal); F10.129 Alcohol abuse with intoxication, unspecified; Y90.8 Blood alcohol level of 240 mg/100 ml or more; N17.9 Acute kidney failure, unspecified; E86.0 Dehydration; E87.6 Hypokalemia; K70.30 Alcoholic cirrhosis of liver without ascites; I10 Essential (primary) hypertension; I48.92 Unspecified atrial flutter; K21.9 Gastro-esophageal reflux disease without esophagitis; K52.9 Noninfective gastroenteritis and colitis, unspecified; Z20.822 Contact with and (suspected) exposure to COVID-19; Z79.899 Other long term (current) drug therapy; Z87.01 Personal history of pneumonia (recurrent); Z87.891 Personal history of nicotine dependence
CPT/HCPCS: 0202U; 36415; 70450; 70496; 70498; 70551; 76700; 80053; 80306; 80320; 81003; 83735; 85025; 85651; 93005; 93306; 96365; 96366; 96367; 96368; 99284; 99285; G0378; J3411; Q9967; 81001; 87086

== ENCOUNTER 2021-05-13 13:00 | Outpatient (CLI) | payer OTHER ==
--- NOTE | 2021-05-14 12:14 | Mammography Report ---
BILATERAL DIGITAL SCREENING MAMMOGRAM 3D/2D: 05/13/2021 CLINICAL: Routine screening. Comparison is made to exams dated: 11/13/2019 mammogram, 11/13/2019 ultrasound, 08/07/2019 mammogram, stereotactic biopsy, 12/23/2018 mammogram, and 12/02/2018 mammogram - [facility]. The tissue of both breasts is heterogeneously dense. This may lower the sensitivity of mammogr aphy. There is a possible new 0.5 cm irregular equal density focal asymmetry in the left breast at 5 o'cloc k anterior depth. No other significant masses, calcifications, or other findings are seen in either breast. IMPRESSION: INCOMPLETE: NEEDS ADDITIONAL IMAGING EVALUATION The possible new 0.5 cm irregular equal density focal asymmetry in the left breast is indeterminate. Additional views with possible ultrasound are recommended. This exam was interpreted at Station ID: [id number]. NOTE: For mammograms, a report in lay terms will be sent to the patient. Approximately 15% of breast malignancies will not be visualized mammographically. In the management of a palpable breast mass, a negative mammogram must not discourage biopsy of a clinically suspicious lesion. Electronically Signed By: Dmitriy Ewing M.D. aty/:05/13/2021 16:01:05 ACR BI-RADS Category 0: Incomplete 3340F PARENCHYMAL PATTERN: (D) - The breast(s) demonstrate(s) heterogeneously dense fibroglandular parenchy charly. BI-RADS CATEGORY: (0) - 0 Mammo and [place] [id number] Immediate follow-up LATERALITY: (L)
== END 2021-05-13 13:01 | disposition home or self-care (01) ==
LOC: DI.N 13:00
DX: Z12.31 Encounter for screening mammogram for malignant neoplasm of breast (principal); R92.8 Other abnormal and inconclusive findings on diagnostic imaging of breast

== ENCOUNTER 2021-06-12 09:50 | Outpatient (CLI) | payer OTHER ==
--- NOTE | 2021-06-13 09:53 | Mammography Report ---
UNILATERAL LEFT DIGITAL DIAGNOSTIC MAMMOGRAM 3D/2D: 06/12/2021 CLINICAL: Patient returns today to evaluate a focal asymmetry in the left breast. Comparison is made to exams dated: 05/13/2021 mammogram - [facility], 11/13/2019 mamm ogram, 11/13/2019 ultrasound, 08/07/2019 mammogram, 01/06/2019 stereotactic biopsy, and 12/23/2018 mammog xochilt - [facility]. The tissue of left breast is heterogeneously dense. This may lo wer the sensitivity of mammography. The 0.5 cm equal density asymmetry in the left breast at 5 o'clock anterior depth is not seen in boy tional views. No other significant masses or calcifications are seen in the breast. IMPRESSION: BENIGN There is no mammographic evidence of malignancy. Return to annual mammogram screening schedule is rec ommended. This exam was interpreted at Station ID: [id number]. NOTE: For mammograms, a report in lay terms will be sent to the patient. Approximately 15% of breast malignancies will not be visualized mammographically. In the management of a palpable breast mass, a negative mammogram must not discourage biopsy of a clinically suspicious lesion. Electronically Signed By: Ovidio Sales acr/:06/12/2021 11:06:19 ACR BI-RADS Category 2: Benign Finding(s) 3342F PARENCHYMAL PATTERN: (D) - The breast(s) demonstrate(s) heterogeneously dense fibroglandular [place]. BI-RADS CATEGORY: (2) - 2 Mammogram [id number] return to screening LATERALITY: (B)
== END 2021-06-12 09:51 | disposition home or self-care (01) ==
LOC: DI 09:50
PROVIDERS: ATTEND Family Medicine
DX: R92.8 Other abnormal and inconclusive findings on diagnostic imaging of breast (principal)

== ENCOUNTER 2021-09-05 10:18 | Emergency (ER) | payer OTHER ==
--- NOTE | 2021-09-05 10:50 | ED Physician Documentation ---
History of Present Illness - Stated complaint Stated Complaint: CRISTIAN MAE HR - Chief complaint Chief Complaint: Cardiac - History obtained from History obtained from: Patient - History of Present Illness Timing: Today - Additonal information Additional information: 61-year-old female who drinks heavily has felt today that she had a palpitating heart and she put on her 's Fitbit Apple Watch and found that her heart rate was up to 130. She became concerned and has come to the emergency department. She does indicate that she has had significant issues with alcohol she believes she has been cutting down on her alcohol and indicates that she drinks vodka, 1-2 half gallons per week and she used to drink 3 half gallons per week. Review of Systems Constitutional: denies: Fever Eyes: denies: Decreased vision Ears: denies: Ear pain Nose: denies: Congestion Throat: denies: Sore throat Respiratory: denies: Cough GI: denies: Abdominal Pain, Vomiting, Constipation, Diarrhea : denies: Dysuria, Frequency PD PAST MEDICAL HISTORY - Past Medical History Cardiovascular: Hypertension, High cholesterol, Angina (stress test 05/24/2011 for ischemia; able to exercise to 10.1 meq), Atrial flutter, Murmur, Arrhythmia, Other (palpitations) Respiratory: None, Asthma (Reports hx asthma, uses inhaler infrequently with exercise), Pneumonia Neuro: Migraines, Peripheral neuropathy, Seizure disorder Endocrine/Autoimmune: Other GI: GERD, Chronic diarrhea, Other : None HEENT: Chronic sinusitis, Other Psych: Depression, Anxiety Musculoskeletal: Osteoarthritis, Fatigue Derm: None - Past Surgical History Past Surgical History: Yes 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: Tubal ligation, Other - Present Medications Home Medications: Ambulatory Orders Medication Instructions Recorded Confirmed Omeprazole [PriLOSEC] 20 mg PO DAILY 09/04/13 10/16/20 atenoloL [Tenormin] 50 mg PO DAILY 09/04/13 10/16/20 Amlodipine Besylate [Norvasc] 10 mg PO DAILY 10/16/20 10/16/20 Cholecalciferol (Vitamin D3) 50 mcg PO DAILY 10/16/20 10/16/20 [Vitamin D3] Montelukast [Singulair] 10 mg PO QPM 10/16/20 10/16/20 LORazepam [Ativan] 1 mg PO Q6HR PRN #20 tablet 09/05/21 - Allergies Allergies/Adverse Reactions: Allergies Allergy/AdvReac Type Severity Reaction Status Date / Time Sulfa (Sulfonamide Allergy Unknown Unknown Verified 09/05/21 10:33 Antibiotics) lisinopril Allergy Unknown Verified 09/05/21 10:33 - Social History Does the pt smoke?: No Smoking Status: Former smoker Does the pt drink ETOH?: Yes Does the pt have substance abuse?: No - Immunizations Immunizations are current?: Yes - POLST Patient has POLST: No PD ED PE NORMAL - Vitals Vital signs reviewed: Yes - General General: Alert and oriented X 3, No acute distress, Well developed/nourished - HEENT HEENT: Atraumatic, PERRL, EOMI - Neck Neck: Supple, no meningeal sign, No bony TTP - Cardiac Cardiac: No murmur, Other (tachy to 110) - Respiratory Respiratory: No respiratory distress, Clear bilaterally - Abdomen Abdomen: Normal bowel sounds, Soft, Non tender, Non distended, No organomegaly - Back Back: No CVA TTP, No spinal TTP - Derm Derm: Normal color, Warm and dry, No rash - Extremities Extremities: No deformity, No edema - Neuro Neuro: Alert and oriented X 3, 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 artist 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, No motor deficit, No sensory deficit, Normal speech Eye Opening: Spontaneous Motor: Obeys Commands Verbal: Oriented GCS Score: 15 - Psych Psych: Normal mood, Normal affect Results - Vitals Vitals: Vital Signs - 24 hr 09/05/21 09/05/21 09/05/21 10:26 10:59 11:41 Temperature 36.4 C L Heart Rate 120 H 118 H 100 Respiratory 11 L 15 18 Rate Blood Pressure 145/85 H 145/85 H 136/78 H O2 Saturation 99 95 96 09/05/21 12:47 Temperature Heart Rate 101 H Respiratory 18 Rate Blood Pressure 138/82 H O2 Saturation 98 Oxygen O2 Source Room air - EKG (time done) 1028 Rate: Rate (enter#) (109) Rhythm: Sinus tachycardia QRS: LVH (with repol abd), Poor R wave progression Compare to prior EKG: Changed from prior EKG (SPT 2-- the rate has increased and the LVH with strain pattern has developed ) Computer interpretation: Agree with computer - Labs Labs: Laboratory Tests 09/05/21 09/05/21 09/05/21 10:50 10:50 10:50 WBC 4.1 L RBC 4.43 Hgb 15.0 Hct 43.5 MCV 98.2 MCH 33.9 H MCHC 34.5 RDW 14.6 Plt Count 128 L MPV 9.6 Neut # (Auto) 1.8 Lymph # (Auto) 1.6 Rusk # (Auto) 0.5 Eos # (Auto) 0.1 Baso # (Auto) 0.0 Absolute Nucleated RBC 0.00 Nucleated RBC % 0.0 Sodium 141 Potassium 3.5 Chloride 106 Carbon Dioxide 20 L Anion Gap 15.0 H BUN 9 Creatinine 0.9 Estimated GFR (MDRD) 63 L Glucose 115 H Calcium 9.3 Total Bilirubin 1.0 AST 107 H ALT 59 Alkaline Phosphatase 83 Troponin I High Sens 7.4 Total Protein 8.4 H Albumin 4.4 Globulin 4.0 Albumin/Globulin Ratio 1.1 Lipase 48 Ethyl Alcohol 09/05/21 10:58 WBC RBC Hgb Hct MCV MCH MCHC RDW Plt Count MPV Neut # (Auto) Lymph # (Auto) Rusk # (Auto) Eos # (Auto) Baso # (Auto) Absolute Nucleated RBC Nucleated RBC % Sodium Potassium Chloride Carbon Dioxide Anion Gap BUN Creatinine Estimated GFR (MDRD) Glucose Calcium Total Bilirubin AST ALT Alkaline Phosphatase Troponin I High Sens Total Protein Albumin Globulin Albumin/Globulin Ratio Lipase Ethyl Alcohol 190.2 - Rads (name of study) chest Radiology: Prelim report reviewed (Impression: No acute cardiopulmonary abnormality.), EMP read indepedently, See rad report Procedures - IVC sono (time) 1114 Bedside IVC sono: IVC measures (cm) (1.2), IVC collapsed c insp (cm) (complete), Dehydration (est 1 liter deficit) PD MEDICAL DECISION MAKING - ED course Complexity details: reviewed results, re-evaluated patient, considered differential, d/w patient, d/w family ED course: 61-year-old female with a resting tachycardia is found to be mildly dehydrated on interrogation the inferior vena cava and she is administered a banana bag intravenously. Her blood alcohol level comes back at 190 today.She was unaware that her blood alcohol would be this high as she indicates she thinks she drank last night. She must of been well over 400. She does have questions about alcohol withdrawal and medication for use with that and we have provided some Ativan for the patient to take. The patient will follow up with Dr. Luke and consider further treatment. Departure - Departure Disposition: 01 Home, Self Care Clinical Impression: Alcohol abuse Condition: Stable Instructions: ED Withdrawal Alcohol, ED Alcohol Abuse Follow-Up: Parrish Luke DO [Primary Care Provider] - Prescriptions: LORazepam [Ativan] 1 mg PO Q6HR PRN #20 tablet PRN Reason: withdrawal symptoms Comments: Lauren, today it appears your alcohol consumption is more than what you expected. It is likely that you will have some withdrawal symptoms including agitation and shakiness elevation in your blood pressure and heart rate. It is recommended to discontinue alcohol use. I have provided some medication to assist with the symptoms of withdrawal. Ativan has been e-scribed to [facility] in [place]. This medication will help with symptoms of shakiness, agitation, elevation in blood pressure and pulse and headache. Do not drink if you are taking ativan. Follow-up with Dr. Luke Discharge Date/Time: 09/05/21 13:09
[2021-09-05 11:01] LABS: BASOPHILS % (AUTO) 0.7 %; EOSINOPHILS # (AUTO) 0.1 10^3/uL (0.0-0.7); EOSINOPHILS % (AUTO) 2.7 %; HCT - HEMATOCRIT 43.5 % (37.0-47.0); LYMPHOCYTES # (AUTO) 1.6 10^3/uL (1.5-3.5); MEAN CORPUSCULAR HEMOGLOBIN 33.9 pg (27.0-31.0); MEAN CORPUSCULAR HGB CONC 34.5 g/dL (32.0-36.0); MEAN CORPUSCULAR VOLUME 98.2 fL (81.0-99.0); MEAN PLATELET VOLUME 9.6 fL (7.9-10.8); MONOCYTES # (AUTO) 0.5 10^3/uL (0.0-1.0); MONOCYTES % (AUTO) 12.6 %; NEUTROPHILS # (AUTO) 1.8 10^3/uL (1.5-6.6); NEUTROPHILS % (AUTO) 44.5 %; PLT - PLATELET COUNT 128 10^3/uL (130-450); RED BLOOD COUNT 4.43 10^6/uL (4.20-5.40); RED CELL DISTRIBUTION WIDTH 14.6 % (12.0-15.0); WHITE BLOOD COUNT 4.1 x10^3/uL (4.8-10.8)
[2021-09-05 11:16] LABS: ALBUMIN 4.4 g/dL (3.2-5.5); ALBUMIN/GLOBULIN RATIO 1.1 (1.0-2.2); CALCIUM 9.3 mg/dL (8.5-10.3); CREATININE 0.9 mg/dL (0.4-1.0); POTASSIUM 3.5 mmol/L (3.5-5.0); TOTAL PROTEIN 8.4 g/dL (6.7-8.2)
[2021-09-05] MEDS ORDERED: THIAMINE INJ 100 MG, MAGNESIUM SULFATE 2 GM, MULTIVITAMIN 10 ML, FOLIC ACID INJ 1 MG in... IV ONE ×5 (11:16)
--- NOTE | 2021-09-05 11:19 | XRAY Report ---
PROCEDURE: Chest 1 View X-Ray INDICATIONS: Chest pain COMMENTS: elivated heart rate x 24 hours. hx of asthma PRIORS: 7.1.19 TECHNIQUE: One view of the chest was acquired. COMPARISON: None FINDINGS: Surgical changes and devices: None. Lungs and pleura: No pleural effusions or pneumothorax. Lungs are clear. Mediastinum: Mediastinal contours appear normal. Heart size is normal. Bones and chest wall: No suspicious bony lesions. Overlying soft tissues appear unremarkable. IMPRESSION: No acute cardiopulmonary abnormality. Reviewed by: Ovidio Sales on 09/05/2021 10:18 AM [facility] Approved by: Ovidio Sales on 09/05/2021 10:18 AM [facility] Station ID: [id number]
[2021-09-05 12:48] VITALS: BP 138/82
== END 2021-09-05 13:09 | disposition home or self-care (01) ==
LOC: ED 10:18
DX: F10.10 Alcohol abuse, uncomplicated (principal); Y90.6 Blood alcohol level of 120-199 mg/100 ml; I10 Essential (primary) hypertension; Z87.891 Personal history of nicotine dependence; E86.0 Dehydration
CPT/HCPCS: 36415; 71045; 80053; 80320; 83690; 84484; 85025; 93005; 96365; 99284; J3411

== ENCOUNTER 2022-06-19 10:42 | Outpatient (CLI) | payer OTHER ==
--- NOTE | 2022-06-19 13:32 | DEXA Report ---
PROCEDURE: Dexa Spine and/or Hip INDICATIONS: POST MENOPAUSAL TECHNIQUE: Dual energy x-ray absorptiometry (DXA) was performed on a Egenera System. Regions measur ed are the AP Spine, femoral neck, and if needed forearm. COMPARISON: None. FINDINGS: Lumbar Spine: Bone Mineral Density 0.991 g/cm/cm,T score -1.6, osteopenia Left Hip: Bone Mineral Density 0.855 g/cm/cm,T score -1.2, osteopenia Left Femoral Neck: Bone Mineral Density 0.750 g/cm/cm, T score -2.1, osteopenia (T score greater or equal to -1.0: NORMAL) (T score from -1.1 to -2.4: OSTEOPENIA) (T score less than or equal to -2.5 to: OSTEOPOROSIS) Impression: Bone mineral density consistent with osteopenia Patients with diagnosis of osteoporosis or osteopenia should have regular bone mineral density assess ment. For those eligible for Medicare, routine testing is allowed once every 2 years. Testing frequ ency can be increased for patients who have rapidly progressing disease or for those who are receivin g medical therapy to restore bone mass. Reviewed by: Sammy Alonso MD on 06/19/2022 12:31 PM [facility] Approved by: Sammy Alonso MD on 06/19/2022 12:31 PM [facility] Station ID: [id number]
== END 2022-06-19 10:43 | disposition home or self-care (01) ==
LOC: DI 10:42
PROVIDERS: ATTEND Nurse Practitioner Family
DX: M85.89 Other specified disorders of bone density and structure, multiple sites (principal); Z78.0 Asymptomatic menopausal state

== ENCOUNTER 2022-07-01 09:26 | Outpatient (CLI) | payer OTHER ==
--- NOTE | 2022-07-08 10:52 | Mammography Report ---
UNILATERAL LEFT DIGITAL DIAGNOSTIC MAMMOGRAM 3D/2D: 07/01/2022 CLINICAL: Patient returns today to evaluate a focal asymmetry with calcifications in the left breast. Comparison is made to exams dated: 06/19/2022 mammogram, 06/12/2021 mammogram, 05/13/2021 mammogram - [facility], 11/13/2019 mammogram, 08/07/2019 mammogram, and 12/23/2018 mammogram - [facility]. The left breast is heterogeneously dense, which may obscure small masses (category c / 51-75% glandu lar tissue). There are benign calcifications in the left breast. There also is a stable biopsy clip in the left b reast at 10 o'clock. There is a 0.3 cm oval equal density focal asymmetry with a microlobulated margin and grouped heterog eneous calcifications in the left breast at 3 o'clock middle depth. This is more prominent and incre ased in size. No other significant masses or calcifications are seen in the breast. IMPRESSION: INCOMPLETE: NEEDS ADDITIONAL IMAGING EVALUATION The 0.3 cm oval equal density focal asymmetry in the left breast is more prominent and remains indete rminate. An ultrasound is recommended. This was performed immediately following this exam. Based on the Tyrer Cuzick model (a risk assessment model) the patients lifetime risk is 9.1% and her 10 year risk is 4.1%. According to the ACR, ACS, and NCCN guidelines, an annual breast MRI exam jun g with mammogram is recommended if the patients lifetime risk is 20% or greater. This exam was interpreted at Station ID: [id number]. NOTE: For mammograms, a report in lay terms will be sent to the patient. Approximately 15% of breast malignancies will not be visualized mammographically. In the management of a palpable breast mass, a negative mammogram must not discourage biopsy of a clinically suspicious lesion. Electronically Signed By: Marika araujo/:07/01/2022 10:14:46 ACR BI-RADS Category 0: Incomplete 3340F PARENCHYMAL PATTERN: (D) - The breast(s) demonstrate(s) heterogeneously dense fibroglandular parenchy ma. BI-RADS CATEGORY: (0) - 0 Ultrasound [id number] Immediate follow-up LATERALITY: (B)
--- NOTE | 2022-07-08 10:52 | Ultrasound Report ---
LIMITED ULTRASOUND OF LEFT BREAST: 07/01/2022 CLINICAL: Patient returns today to evaluate a focal asymmetry in the left breast. No prior exams were available for comparison. Color flow ultrasound of the left breast 3 o'clock region was performed. Edwards scale images of the r eal-time examination were reviewed. There is a 0.4 cm x 0.3 cm x 0.2 cm oval mass with a microlobulated margin in the left breast at 3 o' clock posterior depth 4 cm from the nipple. This oval mass displays a possible fatty hilum and poste rior acoustic shadowing. This possibly correlates with mammography findings. Color flow imaging dem onstrates that there is no vascularity present. NO other findings to correspond to the mammographic abnormality. IMPRESSION: PROBABLY BENIGN The 0.4 cm mass in the left breast most likely is a complicated cyst, a lymph node, or a fibroadenoma and is probably benign. A follow-up left mammogram and an ultrasound in 6 months is recommended to demonstrate stability. Findings and recommendations were conveyed to the patient at time of exam. This exam was interpreted at Station ID: [id number]. Electronically Signed By: Marika araujo/:07/01/2022 16:38:28 Ultrasound BI-RADS: 3 Probably benign BI-RADS CATEGORY: (3) - 3 Mammo and US [id number] 6 month follow-up LATERALITY: (L)
== END 2022-07-01 09:27 | disposition home or self-care (01) ==
LOC: DI 09:26
PROVIDERS: ATTEND Nurse Practitioner Family
DX: N63.25 Unspecified lump in the left breast, overlapping quadrants (principal)

== ENCOUNTER 2023-01-07 09:49 | Outpatient (CLI) | payer OTHER ==
--- NOTE | 2023-01-08 11:14 | Ultrasound Report ---
LIMITED ULTRASOUND OF LEFT BREAST: 01/07/2023 CLINICAL: Patient returns today to evaluate a focal asymmetry in the left breast. Comparison is made to exams dated: 01/07/2023 mammogram, 07/01/2022 ultrasound, 07/01/2022 mammogram, 06/19/2022 mammogram, 06/12/2021 mammogram, and 05/13/2021 mammogram - [facility]. Color flow and real-time ultrasound of the left breast 3 o'clock region were performed. Edwards scale i mages of the real-time examination were reviewed. There is a stable 0.4 cm x 0.3 cm x 0.2 cm oval complicated cyst in the left breast at 3 o'clock midd le depth 4 cm from the nipple. This correlates with mammography findings. Color flow imaging demons trates that there is no vascularity present. There also is a benign 0.5 cm x 0.5 cm x 0.4 cm normal lymph node in the left breast at 3 o'clock pos terior depth 6 cm from the nipple. This normal lymph node displays fatty hilum. This correlates wit h mammography findings. Color flow imaging demonstrates that there is vascularity present. IMPRESSION: PROBABLY BENIGN The stable 0.4 cm complicated cyst in the left breast at 3 o'clock middle depth is probably benign. The normal lymph node in the left breast at 3 o'clock posterior depth is benign. A follow-up mammogram and an ultrasound in 6 months is recommended to demonstrate stability. Patient will be due for right mammogram at that time. Exam findings were conveyed to the patient. This exam was interpreted at Station ID: [id number]. Electronically Signed By: Yifan Jaquez M.D. slc/:01/07/2023 10:44:06 Ultrasound BI-RADS: 3 Probably benign BI-RADS CATEGORY: (3) - 3 Mammo and US [id number] 6 month follow-up LATERALITY: (B)
--- NOTE | 2023-01-08 11:14 | Mammography Report ---
UNILATERAL LEFT DIGITAL DIAGNOSTIC MAMMOGRAM 3D/2D: 01/07/2023 CLINICAL: Patient returns for a 6 month follow up of the left breast. Comparison is made to exams dated: 07/01/2022 mammogram, 06/19/2022 mammogram, 06/12/2021 mammogram, mammogram - [facility], 11/13/2019 mammogram, and 08/07/2019 mammogram - [facility]. The left breast is heterogeneously dense, which may obscure small masses (category c / 51-75% glandul ar tissue). There are benign calcifications in the left breast. There also is a stable biopsy clip in the left b reast at 10 o'clock. There is a 3 mm focal asymmetry in the left breast at 3 o'clock middle depth. This is less prominent . There also is an oval asymmetry in the left breast posterior depth inferior region seen on the mediol ateral oblique view only. No other significant masses or calcifications are seen in the breast. IMPRESSION: INCOMPLETE: NEEDS ADDITIONAL IMAGING EVALUATION The 3 mm focal asymmetry in the left breast at 3 o'clock middle depth is indeterminate. The oval asymmetry in the left breast posterior depth inferior region seen on the mediolateral obliqu e view only is indeterminate. A targeted ultrasound is recommended and will immediately follow. Based on the Tyrer Cuzick model (a risk assessment model) the patients lifetime risk is 8.8% and her 10 year risk is 4.1%. According to the ACR, ACS, and NCCN guidelines, an annual breast MRI exam jun g with mammogram is recommended if the patients lifetime risk is 20% or greater. This exam was interpreted at Station ID: [id number]. NOTE: For mammograms, a report in lay terms will be sent to the patient. Approximately 15% of breast malignancies will not be visualized mammographically. In the management of a palpable breast mass, a negative mammogram must not discourage biopsy of a clinically suspicious lesion. Electronically Signed By: Yifan Jaquez M.D. [facility]/:01/07/2023 10:27:01 ACR BI-RADS Category 0: Incomplete 3340F PARENCHYMAL PATTERN: (D) - The breast(s) demonstrate(s) heterogeneously dense fibroglandular [place]. BI-RADS CATEGORY: (0) - 0 Ultrasound [id number] Immediate follow-up LATERALITY: (B)
== END 2023-01-07 09:50 | disposition home or self-care (01) ==
LOC: DI 09:49
PROVIDERS: ATTEND Nurse Practitioner Family
DX: N60.02 Solitary cyst of left breast (principal)

== ENCOUNTER 2023-05-21 09:11 | Day surgery (SDC) | payer OTHER ==
[2023-05-21] MEDS ORDERED: PROPOFOL 500 MG/50 ML 500 MG/50 ML VIAL ONE (09:20)
[2023-05-21] MEDS ORDERED: LACTATED RINGERS 1,000 ML IV ONE (09:28)
[2023-05-21] MEDS ORDERED: LIDOCAINE-MPF 2% 5 ML VIAL ONE (10:09)
--- NOTE | 2023-05-21 10:44 | ANESTHESIA ---
Pre-Anesthesia VS, & Labs - Diagnosis GERD, history of colon polyps - Procedure EGD and colonoscopy Vital Signs: Temp Pulse Resp BP Pulse Ox O2 Flow Rate 36.1 C L 64 18 126/79 99 05/21/23 09:29 05/21/23 09:29 05/21/23 09:29 05/21/23 09:29 05/21/23 09:29 Height: 5 ft 1 in Weight (kg): 77 kg Body Mass Index: 32.1 BMI Classification: Obese - NPO >8 hours - Is Patient ?: No Home Medications and Allergies Home Medications: Ambulatory Orders Albuterol Sulf [Ventolin Hfa Inhaler] 1 - 2 puffs INH Q4HR PRN 05/14/23 Calcium Carbonate [Calcium] 600 mg PO DAILY 05/14/23 Fluticasone [Flonase] 1 sprays DAVID DAILY 05/14/23 Meclizine HCl [Dramamine] 25 mg PO TID PRN 05/14/23 Sumatriptan Succinate [Imitrex] 25 mg PO ONCE PRN 05/14/23 diphenhydrAMINE [Benadryl] 25 mg PO Q4-6H PRN 05/14/23 Omeprazole [PriLOSEC] 20 mg PO DAILY 09/04/13 atenoloL [Tenormin] 50 mg PO DAILY 09/04/13 Amlodipine Besylate [Norvasc] 10 mg PO DAILY 10/16/20 Cholecalciferol (Vitamin D3) [Vitamin D3] 50 mcg PO DAILY 10/16/20 Montelukast [Singulair] 10 mg PO QPM 10/16/20 Albuterol Sulf [Ventolin Hfa Inhaler] 1 - 2 puffs INH Q4HR PRN 05/14/23 Calcium Carbonate [Calcium] 600 mg PO DAILY 05/14/23 Fluticasone [Flonase] 1 sprays DAVID DAILY 05/14/23 Meclizine HCl [Dramamine] 25 mg PO TID PRN 05/14/23 Sumatriptan Succinate [Imitrex] 25 mg PO ONCE PRN 05/14/23 diphenhydrAMINE [Benadryl] 25 mg PO Q4-6H PRN 05/14/23 Allergies/Adverse Reactions: Allergies Allergy/AdvReac Type Severity Reaction Status Date / Time Sulfa (Sulfonamide Allergy Unknown Rash Verified 05/21/23 09:35 Antibiotics) lisinopril Allergy Unknown Verified 05/21/23 09:35 Anes History & Medical History - Anesthetic History Anesthesia Complications: reports: No previous complications - Medical History Cardiovascular: reports: Hypertension, High cholesterol, Murmur, Arrhythmia Pulmonary: reports: Asthma, Pneumonia Gastrointestinal: reports: GERD, Hiatal hernia, Other (varices) Urinary: reports: None Neuro: reports: Migraines, Peripheral neuropathy, Seizure disorder Musculoskeletal: reports: Osteoarthritis Endocrine/Autoimmune: reports: None Skin: reports: None Smoking Status: Former smoker Psychosocial: reports: Alcohol (5 days per week, 4-5 drinks (vodka)) History of Cancer?: No - Surgical History General: reports: Colonoscopy, EGD Eyes Ears Nose Throat (EENT): reports: Tonsil/Adenoidectomy Gynecologic: reports: Tubal ligation, Other Exam General: Alert, Oriented x3, Cooperative, No acute distress Dental: WNL Mouth Openin Fingerbreadth Neck Mobility: Normal Mallampati classification: II Thyromental Distance: 4-6 cm Mental/Cognitive Status: Alert/Oriented X3, Normal for patient Plan Anesthesia Type: General, Total IV Consent for Procedure(s) Verified and Reviewed: Yes Code Status: Attempt Resuscitation ASA classification: 3-Severe systemic disease Is this case an emergency?: No
[2023-05-21] MEDS ORDERED: MIDAZOLAM 2 MG/2 ML VIAL ONE (10:45)
[2023-05-21] MEDS ORDERED: ePHEDrine 50 MG/ML VIAL IVP ONE (11:03)
[2023-05-21] MEDS ORDERED: LACTATED RINGERS 100 ML IV ONE (11:22)
[2023-05-21 11:40] VITALS: O2SAT 95
[2023-05-21 11:50] VITALS: BP 113/61
--- NOTE | 2023-05-21 16:15 | ANESTHESIA POST OP EVALUATION ---
Anesthesia Post Eval - Post Anesthesia Eval Vitals: Last Vital Signs Temp 36.3 C L 05/21/23 11:46 Pulse 65 05/21/23 11:46 Resp 16 05/21/23 11:46 BP 113/61 05/21/23 11:46 Pulse Ox 95 05/21/23 11:46 O2 Flow Rate CV Function Including HR & BP: Stable Pain Control: Satisfactory Nausea & Vomiting: Negative Mental Status: Baseline Respiratory Status: Airway Patent Hydration Status: Satisfactory Anesthesia Complications: None
== END 2023-05-21 09:12 | disposition home or self-care (01) ==
LOC: SDS 09:11
PROVIDERS: ATTEND Surgery
PROC: 0DBP8ZX Excision of Rectum, Via Natural or Artificial Opening Endoscopic, Diagnostic (ICD-10-PCS; 2023-05-21)
PROC: 0DB58ZX Excision of Esophagus, Via Natural or Artificial Opening Endoscopic, Diagnostic (ICD-10-PCS; principal; 2023-05-21 10:15)
PROC: 0DBK8ZX Excision of Ascending Colon, Via Natural or Artificial Opening Endoscopic, Diagnostic (ICD-10-PCS; 2023-05-21 10:15)
DX: Z12.11 Encounter for screening for malignant neoplasm of colon (principal); K21.9 Gastro-esophageal reflux disease without esophagitis; D12.2 Benign neoplasm of ascending colon; K57.30 Diverticulosis of large intestine without perforation or abscess without bleeding; K62.1 Rectal polyp; J45.909 Unspecified asthma, uncomplicated; E66.9 Obesity, unspecified; I10 Essential (primary) hypertension; Z68.32 Body mass index [BMI] 32.0-32.9, adult; Z87.891 Personal history of nicotine dependence
CPT/HCPCS: 43239; 45380; J7120

== ENCOUNTER 2023-09-17 08:15 | Outpatient (CLI) | payer MEDICARE, OTHER ==
--- NOTE | 2023-09-20 12:55 | Ultrasound Report ---
LIMITED ULTRASOUND OF LEFT BREAST: 09/17/2023 CLINICAL: 6 month follow-up of Left Breast cyst. Comparison is made to exams dated: 01/07/2023 ultrasound, 01/07/2023 mammogram, 07/01/2022 ultrasound, and 07/01/2022 mammogram - [facility]. Color flow ultrasound of the left breast 3 o'clock region was performed. Edwards scale images of the r eal-time examination were reviewed. There is a stable 0.4 cm x 0.2 cm x 0.2 cm oval complicated cyst vs. lymph node in the left breast at 3 o'clock middle depth 4 cm from the nipple. This correlates with mammography findings. Color flow imaging demonstrates that there is no vascularity present. IMPRESSION: PROBABLY BENIGN The stable 0.4 cm x 0.2 cm x 0.2 cm oval complicated cyst vs. lymph node in the left breast is probab ly benign. A follow-up mammogram and an ultrasound in 6 months is recommended to demonstrate stability. This exam was interpreted at Station ID: [id number]. Electronically Signed By: Elliot Benavidez M.D. /:09/17/2023 09:12:09 Ultrasound BI-RADS: 3 Probably benign BI-RADS CATEGORY: (3) - 3 Mammo and US [id number] 6 month follow-up LATERALITY: (B)
--- NOTE | 2023-09-20 12:55 | Mammography Report ---
BILATERAL DIGITAL DIAGNOSTIC MAMMOGRAM 3D/2D: 09/17/2023 CLINICAL: Patient returns for a 6 month follow up of the left breast, due for bilateral exam. Comparison is made to exams dated: 01/07/2023 mammogram, 07/01/2022 mammogram, 06/19/2022 mammogram, mammogram, 05/13/2021 mammogram - [facility], and 11/13/2019 mammogram - [facility]. Both breasts are heterogeneously dense, which may obscure small masses (category c / 51-75% glandular tissue). There are benign calcifications in the left breast. There also is a stable biopsy clip in the left b reast at 10 o'clock. There is a 3 mm focal asymmetry in the left breast at 3 o'clock middle depth. This is stable. There also is an oval asymmetry in the left breast posterior depth inferior region seen on the mediol ateral oblique view only. No other significant masses, calcifications, or other findings are seen in either breast. IMPRESSION: INCOMPLETE: NEEDS ADDITIONAL IMAGING EVALUATION The 3 mm focal asymmetry in the left breast at 3 o'clock middle depth is indeterminate. An ultrasoun d is recommended. The oval asymmetry in the left breast posterior depth inferior region seen on the mediolateral obliqu e view was a benign lymph node previously on US. Based on the Tyrer Cuzick model (a risk assessment model) the patients lifetime risk is 8.5% and her 10 year risk is 4.1%. According to the ACR, ACS, and NCCN guidelines, an annual breast MRI exam jun g with mammogram is recommended if the patients lifetime risk is 20% or greater. This exam was interpreted at Station ID: [id number]. NOTE: For mammograms, a report in lay terms will be sent to the patient. Approximately 15% of breast malignancies will not be visualized mammographically. In the management of a palpable breast mass, a negative mammogram must not discourage biopsy of a clinically suspicious lesion. Electronically Signed By: Elliot Benavidez M.D. lc/:09/17/2023 09:09:48 ACR BI-RADS Category 0: Incomplete 3340F PARENCHYMAL PATTERN: (D) - The breast(s) demonstrate(s) heterogeneously dense fibroglandular [place]. BI-RADS CATEGORY: (0) - 0 Ultrasound [id number] Immediate follow-up LATERALITY: (B)
== END 2023-09-17 08:16 | disposition home or self-care (01) ==
LOC: DI 08:15
PROVIDERS: ATTEND Nurse Practitioner Family
DX: R92.8 Other abnormal and inconclusive findings on diagnostic imaging of breast (principal)

== ENCOUNTER 2024-04-02 17:06 | Emergency (ER) | payer MEDICARE, OTHER ==
[2024-04-02] MEDS: ONDANSETRON ODT 4 MG TABLET TL STA (18:13)
[2024-04-02 18:48] LABS: BASOPHILS % (AUTO) 0.4 %; EOSINOPHILS # (AUTO) 0.1 10^3/uL (0.0-0.7); EOSINOPHILS % (AUTO) 0.5 %; HCT - HEMATOCRIT 37.9 % (37.0-47.0); HGB - HEMOGLOBIN 13.1 g/dL (12.0-16.0); LYMPHOCYTES # (AUTO) 1.3 10^3/uL (1.5-3.5); LYMPHOCYTES % (AUTO) 12.3 %; MEAN CORPUSCULAR HGB CONC 34.6 g/dL (32.0-36.0); MEAN CORPUSCULAR VOLUME 95.5 fL (81.0-99.0); MEAN PLATELET VOLUME 10.5 fL (7.9-10.8); MONOCYTES # (AUTO) 0.4 10^3/uL (0.0-1.0); MONOCYTES % (AUTO) 3.9 %; NEUTROPHILS # (AUTO) 8.7 10^3/uL (1.5-6.6); NEUTROPHILS % (AUTO) 82.3 %; PLT - PLATELET COUNT 93 10^3/uL (130-450); RED BLOOD COUNT 3.97 10^6/uL (4.20-5.40); RED CELL DISTRIBUTION WIDTH 12.4 % (12.0-15.0); WHITE BLOOD COUNT 10.5 x10^3/uL (4.8-10.8)
--- NOTE | 2024-04-02 18:55 | ED Physician Documentation ---
History of Present Illness - Stated complaint Stated Complaint: VOMIT - Chief complaint Chief Complaint: Abd Pain - History obtained from History obtained from: Patient - History of Present Illness Timing: Prior to arrival - Additonal information Additional information: Patient is a 63-year-old female presenting to the emergency department with lower abdominal pain nausea vomiting. Patient notes symptoms started earlier today and she has had persistent nausea vomiting and diarrhea. Patient denies any eating anything different her notes that he he has been eating the same thing and denies any symptoms. She notes pain to her lower abdomen no side worse than the other. She denies any fevers or chills associated with her symptoms. She has been unable to eat or drink anything due to symptoms. Patient does have history of alcohol drinking but denies any drink for the last 3 days. She denies any chest pain no shortness of breath associate with her symptoms. She denies any black or bloody stools. She denies any dysuria or hematuria. She denies any pain radiating to her back. No history of abdominal surgeries. 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, Other HEENT: Tonsil/Adenoidectomy - Present Medications Home Medications: Ambulatory Orders Medication Instructions Recorded Confirmed Omeprazole [PriLOSEC] 20 mg PO DAILY 09/04/13 05/14/23 atenoloL [Tenormin] 50 mg PO DAILY 09/04/13 05/14/23 Amlodipine Besylate [Norvasc] 10 mg PO DAILY 10/16/20 05/14/23 Cholecalciferol (Vitamin D3) 50 mcg PO DAILY 10/16/20 05/14/23 [Vitamin D3] Montelukast [Singulair] 10 mg PO QPM 10/16/20 05/14/23 Albuterol Sulf [Ventolin Hfa 1 - 2 puffs INH Q4HR PRN 05/14/23 05/14/23 Inhaler] Calcium Carbonate [Calcium] 600 mg PO DAILY 05/14/23 05/14/23 Fluticasone [Flonase] 1 sprays DAVID DAILY 05/14/23 05/14/23 Meclizine HCl [Dramamine] 25 mg PO TID PRN 05/14/23 05/14/23 Sumatriptan Succinate [Imitrex] 25 mg PO ONCE PRN 05/14/23 05/14/23 diphenhydrAMINE [Benadryl] 25 mg PO Q4-6H PRN 05/14/23 05/14/23 Amox/Clav 875/125 [Augmentin] 1 each PO Q12H #20 tablet 04/02/24 - Allergies Allergies/Adverse Reactions: Allergies Allergy/AdvReac Type Severity Reaction Status Date / Time Sulfa (Sulfonamide Allergy Unknown Rash Verified 04/02/24 17:34 Antibiotics) lisinopril Allergy Unknown Verified 04/02/24 17:34 - Social History Does the pt smoke?: No Smoking Status: Never smoker Does the pt drink ETOH?: Yes Does the pt have substance abuse?: No - Immunizations Immunizations are current?: Yes - POLST Patient has POLST: No PD ED PE NORMAL - Vitals Vital signs reviewed: Yes - General General: Alert and oriented X 3 - HEENT HEENT: Atraumatic - Neck Neck: Supple, no meningeal sign - Cardiac Cardiac: RRR, No murmur, No gallop, No rub - Respiratory Respiratory: No respiratory distress - Abdomen Abdomen: Normal bowel sounds, Other (Active bowel sounds on auscultation of the abdomen no significant palpable mass or distention on examination of abdomen. Reproducible lower abdominal tenderness on examination of the lower abdomen. Mild generalized guarding but no specific rebound negative Rovsing sign and negative [place] sign.) - Neuro Neuro: Alert and oriented X 3 - Psych Psych: Normal mood Results - Vitals Vitals: Vital Signs - 24 hr 04/02/24 04/02/24 04/02/24 17:34 19:58 20:56 Temperature 36.7 C Heart Rate 101 H 84 81 Respiratory 22 16 16 Rate Blood Pressure 186/89 H 176/81 H 121/84 H O2 Saturation 100 97 97 Oxygen O2 Source Room air - Labs Labs: Laboratory Tests 04/02/24 04/02/24 04/02/24 18:42 18:42 18:42 WBC 10.5 RBC 3.97 L Hgb 13.1 Hct 37.9 MCV 95.5 MCH 33.0 H MCHC 34.6 RDW 12.4 Plt Count 93 L MPV 10.5 Neut # (Auto) 8.7 H Lymph # (Auto) 1.3 L [place] # (Auto) 0.4 Eos # (Auto) 0.1 Baso # (Auto) 0.0 Absolute Nucleated RBC 0.00 Nucleated RBC % 0.0 Sodium 131 L Potassium 3.8 Chloride 95 L Carbon Dioxide 21 Anion Gap 15.0 H BUN 13 Creatinine 1.0 Estimated GFR (MDRD) 56 L Glucose 161 H Calcium 8.9 Total Bilirubin 1.0 AST 22 ALT 12 Alkaline Phosphatase 65 Total Protein 8.0 Albumin 3.9 Globulin 4.1 Albumin/Globulin Ratio 1.0 Lipase 14 Urine Color Urine Clarity Urine pH Ur Specific [place] Urine Protein Urine Glucose (UA) Urine Ketones Urine Occult Blood Urine Nitrite Urine Bilirubin Urine Urobilinogen Ur Leukocyte Esterase Urine RBC Urine WBC Ur Epithelial Cells Ur Squamous Epith Cells Urine Bacteria Ur Microscopic Review Urine Culture Comments Ethyl Alcohol < 10.0 04/02/24 19:15 WBC RBC Hgb Hct MCV MCH MCHC RDW Plt Count MPV Neut # (Auto) Lymph # (Auto) [place] # (Auto) Eos # (Auto) Baso # (Auto) Absolute Nucleated RBC Nucleated RBC % Sodium Potassium Chloride Carbon Dioxide Anion Gap BUN Creatinine Estimated GFR (MDRD) Glucose Calcium Total Bilirubin AST ALT Alkaline Phosphatase Total Protein Albumin Globulin Albumin/Globulin Ratio Lipase Urine Color YELLOW Urine Clarity CLEAR Urine pH 6.0 Ur Specific [place] <=1.005 Urine Protein NEGATIVE Urine Glucose (UA) NEGATIVE Urine Ketones NEGATIVE Urine Occult Blood NEGATIVE Urine Nitrite NEGATIVE Urine Bilirubin NEGATIVE Urine Urobilinogen 0.2 (NORMAL) Ur Leukocyte Esterase TRACE H Urine RBC 0-5 Urine WBC 4-5 Ur Epithelial Cells RARE Transitional Ur Squamous Epith Cells FEW Squamous Urine Bacteria Rare Ur Microscopic Review INDICATED Urine Culture Comments INDICATED Ethyl Alcohol PD Medical Decision Making - ED course Complexity details: reviewed old records, reviewed results, re-evaluated patient, considered differential ED course: Patient is a 63-year-old female presenting to the emergency department with lower abdominal pain. Patient's symptoms started today with persistent nausea vomiting. She has had some diarrhea she denies eating anything different has been unable to eat today due to the symptoms. She denies any fevers or chills no history of abdominal surgeries no history of irritable bowel disease or diverticulitis. Physical exam shows stable vitals on arrival but patient appears nauseous on examination but abdomen shows generalized guarding no specific rebound negative Rovsing sign and negative [place] sign. Normal cardiac and lung sounds on auscultation. Labs obtained here in the emergency department show mild leukocytosis no significant SAIDA however CMP does show anion gap of 15. Symptoms could be due to dehydration given persistent nausea and vomiting today IV fluids started and patient given dose of Reglan Benadryl after receiving Zofran in waiting room. Patient will be sent for CT scan of abdomen due to persistent symptoms. CT scan of abdomen here is in the emergency department shows hepatic steatosis with acute findings of acute diverticulitis no signs of abscess or perforation. Incidental finding additionally of cholelithiasis without signs of cholecystitis. Patient updated on diverticulitis findings as well as incidental findings as well. Instructed patient will give first dose of Zosyn here in the emergency department she completed fluids and was p.o. challenged with applesauce here in emergency department. Patient feels safe to go home will give dose of Augmentin here in the emergency department she will follow-up with her PCP and 7 to 14 days. Instructed patient if she develops any fevers worsening abdominal pain she is to return to emergency department. Patient understands and is agreeable with this plan. Departure - Departure Disposition: 01 Home, Self Care Clinical Impression: Diverticulitis large intestine w/o perforation or abscess w/o bleeding, Vomiting, Abdominal pain, Diarrhea Instructions: Diverticulitis Dc Prescriptions: Amox/Clav 875/125 [Augmentin] 1 each PO Q12H #20 tablet Comments: You are seen here in the emergency department for your abdominal pain nausea vomiting you are able to eat here in the emergency department after antinausea meds given. You had a CT scan done of your abdomen that showed inflammation of your colon called diverticulitis I have started you on antibiotics to help with your symptoms you need to follow-up with your PCP in about 7 to 14 days for reevaluation. Watch for any fevers worsening abdominal pain persistent nausea or vomiting return to emergency department take oral antibiotics as prescribed to help with inflammation. This may cause some mild diarrhea but if he has severe bloody diarrhea or black stools return to emergency department. Forms: PCP List
[2024-04-02 19:05] LABS: ALBUMIN 3.9 g/dL (3.2-5.5); CALCIUM 8.9 mg/dL (8.5-10.3); POTASSIUM 3.8 mmol/L (3.5-4.5)
[2024-04-02] MEDS: SODIUM CHLORIDE 0.9% 1,000 ML IV STA (19:52)
[2024-04-02] MEDS: METOCLOPRAMIDE 10 MG/2 ML VIAL IVP STA (19:54)
[2024-04-02] MEDS: diphenhydrAMINE INJ 50 MG/ML VIAL IVP STA (19:54)
[2024-04-02] MEDS ORDERED: iohexoL-300 100 ML VIAL ONE (19:59)
[2024-04-02] MEDS: iohexoL-300 100 ML VIAL IVP ONE (21:06)
[2024-04-02 21:32] LABS: BILIRUBIN,URINE NEGATIVE (NEGATIVE); CLARITY,URINE CLEAR (CLEAR); GLUCOSE, URINE (UA) NEGATIVE (NEGATIVE); KETONES,URINE (UA) NEGATIVE (NEGATIVE); LEUKOCYTE ESTERASE, URINE TRACE (NEGATIVE); NITRITE,URINE NEGATIVE (NEGATIVE); OCCULT BLOOD,URINE NEGATIVE (NEGATIVE); PROTEIN,URINE NEGATIVE (NEGATIVE); UROBILINOGEN,URINE 0.2 (NORMAL) E.U./dL (NORMAL)
[2024-04-02 21:44] LABS: RBC,URINE 0-5 /HPF (0-5); SQUAMOUS EPITHELIAL CELL,UR FEW Squamous (<= Few)
[2024-04-02 21:45] LABS: BACTERIA,URINE Rare /HPF (None Seen); EPITHELIAL CELLS,UR RARE Transitional /HPF (<= Few)
--- NOTE | 2024-04-02 22:13 | CT Report ---
PROCEDURE: Abdomen/Pelvis W INDICATIONS: lower abdominal pain CONTRAST: 100 ML OMNI 300 TECHNIQUE: After the administration of intravenous contrast, a CT scan of the abdomen and pelvis was performed. Images were recorded and evaluated at appropriate window settings. Reformats: coronal and sagittal. F or radiation dose reduction, the following was used: automated exposure control, adjustment of mA and /or kV according to patient size. COMPARISON: None. FINDINGS: Image quality: Diagnostic. Lower chest: Unremarkable. Liver: Hepatic steatosis. Gallbladder: Multiple small densities layering in the gallbladder fundus. Additional larger rim calci fied hypodense gallstones. Suggestion of gallbladder sludge. Mild gallbladder distention. No perichol ecystic inflammation or wall thickening. Biliary tree: No intrahepatic or extrahepatic dilation, accounting for age. Spleen: No splenomegaly. Calcified splenic granulomas. Pancreas: No pancreatic ductal dilation. No peripancreatic inflammation. Adrenals: No adrenal nodule. Kidneys and ureters: No hydronephrosis. No renal cystic lesion which requires follow up. No solid mas s. Stomach, bowel and peritoneum: No gastric or small bowel dilation. No abnormal wall thickening. No pa thologic free fluid. Colonic diverticulosis with segment of acute inflammatory changes involving the proximal to mid sigmoid colon. No evidence for abscess formation or perforation. Lymph nodes: No central or retroperitoneal adenopathy. Vessels: No infrarenal aortic aneurysm. Patent portal vein. PELVIS Reproductive organs: Unremarkable. Bladder: No abnormal wall thickening, accounting for underdistention. Pelvic lymph nodes: No pelvic adenopathy by size criteria. Bones: No aggressive osseous abnormality. No acute compression fracture. Multilevel spondylosis. Other: No significant ventral or inguinal hernia. IMPRESSION: Acute diverticulitis involving the sigmoid colon without evidence for perforation or abscess formatio n. Hepatic steatosis. Cholelithiasis without CT evidence for acute cholecystitis. Other chronic findings as above. Reviewed by: Dmitriy Hernandez MD on 04/02/2024 10:12 PM PDT Approved by: Dmitriy Hernandez MD on 04/02/2024 10:12 PM PDT Station ID: [id number]
[2024-04-02] MEDS: PIPERACILLIN/TAZOBACTAM 3.375 GM in SODIUM CHLORIDE 0.9% MINIBAG 100 ML IV STA (23:27)
[2024-04-03 00:13] VITALS: BP 144/67; O2SAT 99
== END 2024-04-03 00:18 | disposition home or self-care (01) ==
LOC: ED 17:06
DX: K57.32 Diverticulitis of large intestine without perforation or abscess without bleeding (principal); R11.2 Nausea with vomiting, unspecified; R19.7 Diarrhea, unspecified; I10 Essential (primary) hypertension; E78.00 Pure hypercholesterolemia, unspecified; Z79.899 Other long term (current) drug therapy
CPT/HCPCS: 36415; 74177; 80053; 81001; 83690; 85025; 87086; 96361; 96365; 96375; 99283; 99284; G0480; J1200; J2765; Q0162; Q9967; 81003; 82077

== ENCOUNTER 2024-05-04 08:37 | Outpatient (CLI) | payer MEDICARE, OTHER ==
--- NOTE | 2024-05-05 15:33 | Mammography Report ---
UNILATERAL LEFT DIGITAL DIAGNOSTIC MAMMOGRAM 3D/2D: 05/04/2024 CLINICAL: Patient returns for a 6 month follow up of the left breast. Comparison is made to exams dated: 09/17/2023 mammogram, 01/07/2023 mammogram, 07/01/2022 mammogram, mammogram, 06/12/2021 mammogram, and 05/13/2021 mammogram - [facility]. The left breast is heterogeneously dense, which may obscure small masses (category c / 51-75% glandul ar tissue). There is a stable 3 mm irregular asymmetry with an indistinct margin in the left breast posterior dep th superior region seen on the mediolateral oblique view only. This is not seen in additional views. Other left breast findings including a biopsy marker at 10:00 are stable. No other significant masses or calcifications are seen in the breast. IMPRESSION: INCOMPLETE: NEEDS ADDITIONAL IMAGING EVALUATION The 3 mm irregular asymmetry in the left breast is stable. An ultrasound is recommended to confirm st ability . This was performed immediately following this exam. Based on the Tyrer Cuzick model (a risk assessment model) the patient's lifetime risk is 8.5% and her 10 year risk is 4.1%. According to the ACR, ACS, and NCCN guidelines, an annual breast MRI exam jun g with mammogram is recommended if the patient's lifetime risk is 20% or greater. This exam was interpreted at Station ID: [id number]. NOTE: For mammograms, a report in lay terms will be sent to the patient. Approximately 15% of breast malignancies will not be visualized mammographically. In the management of a palpable breast mass, a negative mammogram must not discourage biopsy of a clinically suspicious lesion. Electronically Signed By: Marika araujo/:05/04/2024 09:23:56 ACR BI-RADS Category 0: Incomplete 3340F PARENCHYMAL PATTERN: (D) - The breast(s) demonstrate(s) heterogeneously dense fibroglandular parenchy ma. BI-RADS CATEGORY: (0) - 0 Ultrasound [id number] Immediate follow-up LATERALITY: (B)
--- NOTE | 2024-05-05 15:33 | Ultrasound Report ---
LIMITED ULTRASOUND OF LEFT BREAST: 05/04/2024 CLINICAL: Patient returns for a 6 month follow up of the left breast. Comparison is made to exams dated: 05/04/2024 mammogram, 09/17/2023 ultrasound, 09/17/2023 mammogram, 12/13 ultrasound, 01/07/2023 mammogram, and 07/01/2022 ultrasound - [facility]. Color flow and real-time ultrasound of the left breast 3 o'clock region were performed. Edwards scale images of the real-time examination were reviewed. There is a 0.4 cm x 0.3 cm x 0.2 cm oval complicated cystic structure in the left breast at 3 o'clock middle depth 4 cm from the nipple. This abnormality is not significantly changed and correlates wit h mammography findings. Color flow imaging demonstrates that there is no vascularity present. IMPRESSION: BENIGN There is no sonographic evidence of malignancy. The 0.4 cm x 0.2 cm x 0.2 cm oval complicated cystic structure in the left breast has demontrated two years of stability and is therefore benign. Return to annual mammogram screening schedule is recommended. Findings and recommendations were conveyed to the patient at time of exam. This exam was interpreted at Station ID: [id number]. Electronically Signed By: Marika araujo/:05/04/2024 09:46:27 Ultrasound BI-RADS: 2 Benign BI-RADS CATEGORY: (2) - 2 Mammogram [id number] return to screening LATERALITY: (B)
== END 2024-05-04 08:38 | disposition home or self-care (01) ==
LOC: DI 08:37
PROVIDERS: ATTEND Nurse Practitioner Family
DX: N60.02 Solitary cyst of left breast (principal); R92.332 Mammographic heterogeneous density, left breast